=== PATIENT | male | born 1985 | race Caucasian/White ===

== ENCOUNTER 2019-01-08 16:55 | Inpatient (IN) ==
--- OUTSIDE RECORDS SUMMARY | 2019-01-08 16:58 | External Medical Summary | Continuity of Care Document ---
:1985 Author Name Sabiha Ny, Provider Address Unavailable Unavailable , Care Team Providers Name Role Phone Tiffany LANG M.D., Nicolas Pena Unavailable [email or web address] [email or web address] [email or web address] Shelby Goodrich PA-C Unavailable [email or web address] RICKEY ALLEN M.D., Kaleb Unavailable Unavailable Unavailable Unavailable Unavailable Problems Anxiety disorder (300.00) (F41.9) Cervicalgia (723.1) (M54.2) Lumbago (724.2) (M54.5) Chronic pain (338.29) (G89.29) Convulsions (780.39) (R56.9) Seizure disorder (345.90) (G40.909) T2 vertebral fracture (805.2) (S22.029A) Chin laceration (873.44) (S01.81XA) Fall (E888.9) (W19.XXXA) Chronic viral hepatitis C (070.54) (B18.2) Depression (311) (F32.9) Vision problems (V41.0) (H54.7) Heart murmur (785.2) (R01.1) Cough (786.2) (R05) Titus involving less than 10% of body surface (948.00) (T31. 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 Anant Allen III Start: 22-Sep-2013 Quantity: 30 Refills: 5 Meloxicam 15 MG Oral Tablet; Take 1 tablet daily Anant Allen III Start: 30-Apr-2014 Quantity: 30 Refills: 3 ZyPREXA 10 MG Oral Tablet; TAKE 1 TABLET TWICE DAILY. Refills: 0 Sertraline HCl - 25 MG Oral Tablet; Take 1 tablet daily 30 Tablet Bottle Refills: 0 Proventil HFA 108 (90 Base) MCG/ACT Inha lation Aerosol Solution; INHALE 2 PUFFS EVERY 4-6 HOURS NEEDED. EILEEN Wagner Start: 31-Mar-2016 Quantity: 18 Refills: 1 Procedures Procedures not documented Immunizations Td On: 24-Dec-1998 Hepatitis A On: 05-Jul-2008 Influenza On: 14-May-2011 Influenza Comments:denied 2013 Family History Unknown Family Member Family history of CABG Status: Active Comments: Family History Mother No pertinent family history (V49.89) (Z78.9) Status: Active Social History - Smoking Status Current every day smoker Plan of Treatment Planned Observations Planned Goals not documented Results No Known Results Results not documented Encounters Appointment; Case, MADALYN Velasquez 24-Jun-2017 15:00 Encounter Diagnosis: Problem not documented
[2019-01-08 17:40] LABS: Basophils # (auto) 0.02 K/uL (0-0.2); Basophils % (auto) 0.2 %; Eosinophils # (auto) 0.07 K/uL (0-0.5); Eosinophils % (auto) 0.8 %; Hematocrit (blood only) 41.8 % (42-52); Immature Granulocytes # (auto) 0.01 K/uL (0.00-0.02); Immature Granulocytes % (auto) 0.1 %; Lymphocytes % (auto) 32.4 %; Mean Corpuscular Hgb Conc 35.9 g/dL (32-36); Mean Corpuscular Volume 86.7 fL (80-100); Mean Platelet Volume 9.1 fL (7.4-10.4); Monocytes # (auto) 0.53 K/uL (0.11-0.59); Monocytes % (auto) 5.9 %; Neutrophils # (auto) 5.43 K/uL (1.4-6.5); Neutrophils % (auto) 60.6 %; Platelet Count 257 K/uL (130-400); RDW Coefficient of Variation 13.1 % (11.5-14.5); RDW Standard Deviation 42.1 fL (36.4-46.3); Red Blood Count 4.82 M/uL (4.7-6.1); White Blood Count 8.96 K/uL (4.8-10.8)
[2019-01-08] MEDS: NICOTINE 21 MG/24 HR TDSY TD SCH (17:46)
[2019-01-08 17:53] LABS: Appearance Urine Clear (Clear); Bilirubin Urine Negative (Negative); Blood Urine Negative (Negative); Color Urine Yellow; Glucose Urine UA Negative (Negative); Ketones Urine Negative (Negative); Leukocyte Esterase Urine Negative (Negative); Nitrite Urine Negative (Negative); Protein Urine Negative (Negative); Specific Gravity Urine 1.012 (1.000-1.030); Urobilinogen Urine Negative (Negative)
[2019-01-08 18:02] LABS: Acetaminophen < 2 ug/ml (10-30); Salicylate 1.9 mg/dl (2.8-20)
[2019-01-08 18:05] LABS: Albumin Level 3.8 gm/dl (3.4-5.0); BUN Creatinine Ratio 13.3 (10-20); Calcium 8.2 mg/dl (8.5-10.1); Est GFR (African American) 96.7; Est GFR (Non-African American) 83.4; Potassium 3.5 mmol/L (3.5-5.1)
[2019-01-08 18:13] LABS: Albumin Globulin Ratio 1.1 (0.9-2); Bilirubin,Total 0.3 mg/dl (0.2-1); Globulin 3.4 gm/dl (2.5-4.0); Total Protein 7.2 gm/dl (6.4-8.2)
[2019-01-08 18:18] LABS: Amphetamines+Metham, Urine Neg (Neg); Barbiturates, Urine Neg (Neg); Benzodiazepine, Urine Neg (Neg); Cocaine, Urine Neg (Neg); MDMA (Ecstacy), Urine Neg (Neg); Methadone, Urine Neg (Neg); Opiate, Urine Neg (Neg); Phencyclidine, Urine Neg (Neg)
[2019-01-08] MEDS: THIAMINE HCL 100 MG TAB PO SCH (18:48)
[2019-01-08] MEDS: MULTIVITAMIN TAB PO SCH (18:48)
[2019-01-08] MEDS: FOLIC ACID 400 MCG TAB PO SCH (18:48)
[2019-01-08] MEDS ORDERED: TRAZODONE HCL 50 MG TAB PO ONE (22:32)
[2019-01-08] MEDS ORDERED: lamoTRIgine 100 MG TAB PO ONE (22:45)
[2019-01-08] MEDS ORDERED: TOPIRAMATE 100 MG TAB PO ONE (22:45)
[2019-01-08] MEDS ORDERED: levETIRAcetam 500 MG TAB PO ONE (22:45)
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
[2019-01-09] MEDS ORDERED: ONDANSETRON INJ 2 MG/ML 2 ML VIAL IV PRN (00:35)
[2019-01-09] MEDS ORDERED: LORazepam 1 MG/2 ML VIAL IV PRN (00:35)
[2019-01-09] MEDS ORDERED: LORazepam 3 MG/6 ML VIAL IV PRN (00:35)
[2019-01-09] MEDS ORDERED: ATIVAN IV ALCOHOL WITHDRAWL IV SCH (00:35)
[2019-01-09] MEDS ORDERED: ACETAMINOPHEN 1000 MG/100 ML IV IV PRN (00:35)
[2019-01-09] MEDS ORDERED: ACETAMINOPHEN 325 MG TAB PO PRN (00:35)
[2019-01-09] MEDS ORDERED: LORazepam 2 MG/4 ML VIAL IV PRN (00:35)
--- NOTE | 2019-01-09 02:11 | History & Physical Report ---
Date of Service January 09, 2019 The patient was seen and admitted on January 08, 2019. Assessment & Plan (1) Suicidal ideation: Suicidal ideation/depression/seizure disorder- Admit to monitored bed. Continue lamotrigine 20 mg p.o. twice daily, Keppra 1500 mg p.o. twice daily, sertraline 50 mg p.o. every morning, Topamax 20 mg p.o. twice daily and trazodone 300 mg p.o. at bedtime. Consult psychiatry. Present on Admission?: Yes (2) Depression: As above. Present on Admission?: Yes (3) Epilepsia: As above. Present on Admission?: Yes (4) Alcohol withdrawal seizure: Place on alcohol withdrawal scale program Present on Admission?: Yes (5) Alcohol abuse: Placed on alcohol withdrawal program. Present on Admission?: Yes (6) Arthritis: Will resume meloxicam 15 mg p.o. daily when patient is eating regularly. Present on Admission?: Yes (7) Asthma: Continue Advair Diskus 1 inhalation twice daily and Ventolin HFA 2 puffs every 6 hours as needed. Present on Admission?: Yes History of Present Illness Chief Complaint: The patient presented to the emergency department for mental health evaluation due to suicidal ideation. During this evaluation by the ED, psychiatry asked that patient be admitted to medicine since patient had a history of seizure disorder as a child and may possibly go through alcohol withdrawal during this admission. Primary Care Provider: FELICE DOE The patient is a 33-year-old male with past medical history including seizure disorder, suicidal ideation, alcohol abuse, previous alcohol withdrawal symptoms, asthma, lumbar spine arthritis, right knee arthritis and depression who presented to the emergency department with suicidal ideation, and was then [facility] due to history as above and concerns for possible alcohol withdrawal. Patient does report generalized fatigue, and mild nausea. Allergies Allergy/AdvReac Type Severity Reaction Status Date / Time amoxicillin Allergy Unknown UNKNOWN Verified 01/08/19 18:50 clavulanic acid Allergy Unknown UNKNOWN Verified 01/08/19 18:50 Home Medications Home Medications Medication Instructions Recorded Confirmed Type levetiracetam [Keppra] 1,500 mg PO BID #0 tab 01/12/13 01/08/19 History sertraline 50 mg PO QAM #0 tab 01/12/13 01/08/19 History albuterol sulfate [Ventolin HFA] 2 puff INHALATION q4-6h PRN #0 05/15/15 01/08/19 History meloxicam 15 mg PO DAILY #0 05/19/15 01/08/19 History topiramate [Topamax] 200 mg PO BID #60 06/10/16 01/08/19 History lamotrigine [Lamictal] 200 mg PO BID 12/06/18 01/08/19 History fluticasone propion-salmeterol 1 puff INHALATION BID 01/08/19 01/08/19 History trazodone 300 mg PO HS 01/08/19 01/08/19 History Past Med/Surg History Medical History Epilepsia (Chronic) Social History Preferred Language: [place]er Communication Ability: Effective Publications Inspector Required: No Beliefs That Will Affect Care: None Current Living Situation: Homeless Feels Safe at Home: Yes Safety Concerns: Feels Safe At This Time Smoking Status: Current every day smoker Tobacco Type: cigarettes Cigarettes Per Day: 20 Hx Alcohol Use: Yes Alcohol type: beer Hx Substance Use: No Review of Systems Review of Systems: The patient denies chest pain, palpitations, shortness of breath, dyspnea on exertion, cough, lower extremity swelling, sore throat, fevers, chills, sweats, weight change, vomiting, diarrhea , constipation, abdominal pain, pelvic pain, blood in urine or stool, dysuria, urinary frequency or urgency, lightheadedness, dizziness, headache, memory loss, loss of consciousness, rash, abnormal bruising or bleeding, imbalance, focal or generalized weakness, numbness or tingling in arms or legs, generalized arthralgias or myalgias, back or neck pain, or night sweats. The review of systems is otherwise negative other than for that already noted above, and at least 10 systems have been reviewed. Physical Exam Physical Exam: The patient is awake, alert and oriented 3, well developed and well nourished, normocephalic and atraumatic, lying in bed and in no acute distress. HEENT--PERRL, EOMI, mucous membranes and oropharynx dry. Neck--supple. No JVD. No bruits. Thyroid normal, trachea midline, no adenopathy. Heart--normal S1 and S2. No murmurs, rubs or gallops. Lungs--clear bilaterally, no respiratory distress, no accessory muscle use. Abdomen--normal bowel sounds and soft. Nontender. Nondistended. Extremities--no cyanosis or clubbing. No edema. There are good distal pulses b/l. Dermatologic--normal skin turgor, normal color, no abnormal lymph nodes, no rash. Neurologic--cranial nerves II through XII grossly intact. Rheumatologic--normal range of motion. Psychiatric--depressed Results & Data Vital Signs (Past 12 Hours) Vital Signs Temp Pulse Pulse Resp BP BP Pulse Ox 01/09/19 00:33 98.1 F 62 16 120/75 99 01/09/19 00:20 82 18 116/75 98 01/08/19 22:48 84 18 114/62 97 01/08/19 20:30 82 18 119/71 97 01/08/19 17:04 98.6 F 109 H 20 139/72 95 Laboratory Results Laboratory Results WBC 8.96 K/uL (4.8-10.8) 01/08/19 17:25 RBC 4.82 M/uL (4.7-6.1) 01/08/19 17:25 Hgb 15.0 g/dL (14.0-18.0) 01/08/19 17:25 Hct 41.8 % (42-52) L 01/08/19 17:25 MCV 86.7 fL (80-100) 01/08/19 17:25 MCH 31.1 pg (25-34) 01/08/19 17:25 MCHC 35.9 g/dL (32-36) 01/08/19 17:25 RDW Std Deviation 42.1 fL (36.4-46.3) 01/08/19 17:25 RDW Coeff of Sweetie 13.1 % (11.5-14.5) 01/08/19 17:25 Plt Count 257 K/uL (130-400) 01/08/19 17:25 MPV 9.1 fL (7.4-10.4) 01/08/19 17:25 Immature Gran % (Auto) 0.1 % 01/08/19 17:25 Neut % (Auto) 60.6 % 01/08/19 17:25 Lymph % (Auto) 32.4 % 01/08/19 17:25 [place] % (Auto) 5.9 % 01/08/19 17:25 Eos % (Auto) 0.8 % 01/08/19 17:25 Baso % (Auto) 0.2 % 01/08/19 17:25 Immature Gran # (Auto) 0.01 K/uL (0.00-0.02) 01/08/19 17:25 Neut # (Auto) 5.43 K/uL (1.4-6.5) 01/08/19 17:25 Lymph # (Auto) 2.90 K/uL (1.2-3.4) 01/08/19 17:25 [place] # (Auto) 0.53 K/uL (0.11-0.59) 01/08/19 17:25 Eos # (Auto) 0.07 K/uL (0-0.5) 01/08/19 17:25 Baso # (Auto) 0.02 K/uL (0-0.2) 01/08/19 17:25 Sodium 145 mmol/L (136-145) 01/08/19 17:25 Potassium 3.5 mmol/L (3.5-5.1) 01/08/19 17:25 Chloride 113 mmol/L (98-107) H 01/08/19 17:25 Carbon Dioxide 21 mmol/L (21-32) 01/08/19 17:25 Anion Gap 11.0 (3-11) 01/08/19 17:25 BUN 15 mg/dl (7-18) 01/08/19 17:25 Creatinine 1.14 mg/dl (0.6-1.4) 01/08/19 17:25 Est Cr Clr Drug Dosing 93.0 ml/min 01/08/19 17:25 Est GFR ( Amer) 96.7 01/08/19 17:25 Est GFR (Non-Af Amer) 83.4 01/08/19 17:25 BUN/Creatinine Ratio 13.3 (10-20) 01/08/19 17:25 Glucose 81 mg/dl (70-99) 01/08/19 17:25 Calcium 8.2 mg/dl (8.5-10.1) L 01/08/19 17:25 Total Bilirubin 0.3 mg/dl (0.2-1) 01/08/19 17:25 AST 47 U/L (15-37) H 01/08/19 17:25 ALT 67 U/L (12-78) 01/08/19 17:25 Alkaline Phosphatase 138 U/L (45-117) H 01/08/19 17:25 Total Protein 7.2 gm/dl (6.4-8.2) 01/08/19 17:25 Albumin 3.8 gm/dl (3.4-5.0) 01/08/19 17:25 Globulin 3.4 gm/dl (2.5-4.0) 01/08/19 17:25 Albumin/Globulin Ratio 1.1 (0.9-2) 01/08/19 17:25 TSH 1.030 uIu/ml (0.300-4.500) 01/08/19 17:25 Specimen Hemolysis 01/08/19 17:25 Urine Color Yellow 01/08/19 17:40 Urine Appearance Clear (Clear) 01/08/19 17:40 Urine pH 5.0 (4.5-7.5) 01/08/19 17:40 Ur Specific Worth 1.012 (1.000-1.030) 01/08/19 17:40 Urine Protein Negative (Negative) 01/08/19 17:40 Urine Glucose (UA) Negative (Negative) 01/08/19 17:40 Urine Ketones Negative (Negative) 01/08/19 17:40 Urine Blood Negative (Negative) 01/08/19 17:40 Urine Nitrite Negative (Negative) 01/08/19 17:40 Urine Bilirubin Negative (Negative) 01/08/19 17:40 Urine Urobilinogen Negative (Negative) 01/08/19 17:40 Ur Leukocyte Esterase Negative (Negative) 01/08/19 17:40 Salicylates 1.9 mg/dl (2.8-20) L 01/08/19 17:25 Urine Opiates Screen Neg (Neg) 01/08/19 17:40 Ur Methadone, Qual Neg (Neg) 01/08/19 17:40 Acetaminophen < 2 ug/ml (10-30) L 01/08/19 17:25 Urine Barbiturates Neg (Neg) 01/08/19 17:40 Ur Phencyclidine (PCP) Neg (Neg) 01/08/19 17:40 U Amphetamin/Meth Scrn Neg (Neg) 01/08/19 17:40 MDMA (Ecstasy) Screen Neg (Neg) 01/08/19 17:40 U Benzodiazepines Scrn Neg (Neg) 01/08/19 17:40 Ur Cocaine Metabolite Neg (Neg) 01/08/19 17:40 U Marijuana (THC) Screen Neg (Neg) 01/08/19 17:40 Ethyl Alcohol mg/dL 141.0 mg/dl (0-3) H 01/08/19 17:25 Code Status & VTE Plan Code Status Full code VTE Prophylaxis Plan VTE Prophylaxis will be ordered: Yes PG Care Time/CCT Total # of Minutes Spent Total Time Spent with Patient: Total time spent is greater than 50% in coordination of care (as documented) at patient's floor/unit and/or counseling patient: (1) Alcohol withdrawal seizure Complication of substance-induced condition: with unspecified complication Qualified Code(s): F10.239 - Alcohol dependence with withdrawal, unspecified; R56.9 - Unspecified convulsions
[2019-01-09 07:04] LABS: Basophils # (auto) 0.01 K/uL (0-0.2); Basophils % (auto) 0.2 %; Eosinophils # (auto) 0.13 K/uL (0-0.5); Eosinophils % (auto) 2.1 %; Hematocrit (blood only) 40.7 % (42-52); Hemoglobin 14.3 g/dL (14.0-18.0); Immature Granulocytes # (auto) 0.02 K/uL (0.00-0.02); Immature Granulocytes % (auto) 0.3 %; Mean Corpuscular Hgb Conc 35.1 g/dL (32-36); Mean Corpuscular Volume 87.3 fL (80-100); Mean Platelet Volume 9.2 fL (7.4-10.4); Monocytes # (auto) 0.48 K/uL (0.11-0.59); Monocytes % (auto) 7.7 %; Neutrophils # (auto) 3.27 K/uL (1.4-6.5); Neutrophils % (auto) 52.7 %; Platelet Count 188 K/uL (130-400); RDW Coefficient of Variation 13.5 % (11.5-14.5); RDW Standard Deviation 43.1 fL (36.4-46.3); Red Blood Count 4.66 M/uL (4.7-6.1); White Blood Count 6.21 K/uL (4.8-10.8)
[2019-01-09 07:25] LABS: Partial Thromboplastin Ratio 0.9; Partial Thromboplastin Time 25.3 Seconds (21.0-31.0); Prothrombin Time 10.6 Seconds (9.0-12.0)
[2019-01-09 07:32] LABS: Albumin Level 3.2 gm/dl (3.4-5.0); BUN Creatinine Ratio 22.2 (10-20); Calcium 8.6 mg/dl (8.5-10.1); Creatinine Clr Calc Pharmacy 104.1 ml/min; Est GFR (Non-African American) 96.6; Potassium 3.8 mmol/L (3.5-5.1)
[2019-01-09 07:35] LABS: Albumin Globulin Ratio 1.1 (0.9-2); Bilirubin,Total 0.5 mg/dl (0.2-1); Globulin 2.9 gm/dl (2.5-4.0); Total Protein 6.1 gm/dl (6.4-8.2)
[2019-01-09] MEDS: levETIRAcetam 500 MG TAB PO SCH ×2 (08:37→20:48)
[2019-01-09] MEDS: lamoTRIgine 100 MG TAB PO SCH ×2 (08:38→20:48)
[2019-01-09] MEDS: MELOXICAM 7.5 MG TAB PO SCH (08:39)
[2019-01-09] MEDS: TOPIRAMATE 100 MG TAB PO SCH ×2 (08:39→20:48)
[2019-01-09] MEDS: SERTRALINE HCL 50 MG TABLET PO SCH (08:40)
[2019-01-09] MEDS: NICOTINE 21 MG/24 HR TDSY TD SCH (08:41)
[2019-01-09] MEDS: THIAMINE HCL 100 MG TAB PO SCH (11:35)
[2019-01-09] MEDS: FOLIC ACID 400 MCG TAB PO SCH (11:35)
[2019-01-09] MEDS: MULTIVITAMIN TAB PO SCH (11:35)
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
--- NOTE | 2019-01-09 16:12 | Family Medicine Progress Note ---
Date of Service January 09, 2019 Assessment & Plan (1) Suicidal ideation: - attributes recently becoming homeless as stressor causing suicidal ideations - currently no suicidal plans - consult psychiatry placed today - 1:1 precautions/sitter (2) Depression: - with setting of recent stressor becoming homeless. - continue with Zoloft 50mg qAM - Continue with Trazodone 300mg qHS (3) Alcohol abuse: - [facility] protocol for alcohol withdrawal which patient is high risk - Monitor vitals for tachycardia from withdrawal - Motivational interviewing/counseling on EtOH abuse provided here (4) Bipolar disorder: - uncertain of use of anti-seizure medications vs. mood stabilizers. - coverage provided Topamax 200mg BID (5) Seizure disorder: - Notes frequent seizures with alcohol use, but is vague historian on details - No signs of injury, tongue injury, head injury on exam, only very small mild abrasions he notes from fall on dorsal upper extremities and hands. - Continue with home doses of Lamictal 200mg PO BID, Keppra 1,500mg PO BID, Topamax 200mg BID (6) Tobacco abuse: - Motivational interviewing/counseling on tobacco abuse provided here (7) Epilepsia: seizure disorder as noted above (8) Asthma: - continue with home meds Ventolin rescue inhaler 2 puff PRN; continue with Fluticasone propion-salmeterol 1puff BID. Supervising Physician Co-Signing Physician Notes Attending attestation Pt seen and examined in concert with Dr. Woodruff. In agreement with the documented findings as noted in the resident documentation with any exceptions or additions as noted here. Pt sleeping in bed, arousable to voice. Reports general feeling of fatigue and comports a desire to find a home, though not to stop drinking. On examination, S1/S2 nl RRR no MCG. CTAB. Abd NT/ND BS+ve Suicidal ideation in the setting of major depression with concomittent alcohol abuse and recent homelessness - case management and psychiatry involvement appreciated. Continue withdrawal ppx w/ ativan for agitation Seizure disorder - continue lamotrigine, keppra, sertraline, topiramate, trazodone - last seizure during drinking binge previously without overt injury Else see resident documentation as noted. Ankita Dallas notes last drink was yesterday Wednesday around 3pm. He denies any hallucinations both visual and audio. He notes feeling shaky but states he has never had a previous episode of alcohol withdrawal. He notes that losing his housing and becoming homeless was a major stressor for him. He denies any suicidal plans. Physical Exam Constitutional: WD/WN, vitals as above cooperative Eyes: PERRL, conjunctivae normal, anicteric sclerae ENMT: external ear and nose normal, oropharynx normal Neck: trachea midline, no thyromegaly Respiratory: normal respiratory effort, lungs clear to auscultation Cardiovascular: RRR, no murmur, no edema Gastrointestinal (Abdomen): normal bowel sounds, soft, nontender, no hepatosplenomegaly Musculoskeletal: Head/Neck/Chest: + head abnormal to inspection, normocephalic and head atraumatic Extremities: extremities normal to inspection and strength 5/5 throughout Skin: no rashes, warm and dry mild small abrasions on upper dorsal forearm extremities bilaterally without any signs of infection Neurologic: CN's II-XI intact bilaterally, moves all extremities and awake Motor/Sensory: + tremor (upper extremities when hands outstretched) Cranial Nerves: PERRL, normal accommodation, EOM intact bilaterally, normal facial strength, tongue midline, normal hearing and able to rotate head bilaterally Psychiatric: Orientation: alert and oriented x 3 Eye Contact: + fair eye contact Speech: normal rate/rhythm/volume of speech Affect: + flat affect Mood: + depressed mood Suicidal Thoughts: denies suicidal plan Hernandez llucinations: no auditory hallucinations and no visual hallucinations Insight: + limited insight Results & Data Vital Signs (Past 12 Hours) Vital Signs Temp Pulse Pulse Resp BP Pulse Ox 01/09/19 15:39 37 C 80 18 107/65 98 01/09/19 10:50 36.5 C 78 18 115/70 98 01/09/19 08:00 71 01/09/19 06:47 36.8 C 90 20 107/65 99 PG Care Time/CCT Total # of Minutes Spent Total Time Spent with Patient: Total time spent is greater than 50% in coordination of care (as documented) at patient's floor/unit and/or counseling patient: Resident Activity Tracking Resident Involvement: Resident Care Provided Care Provided: Adult Hospital Medicine
[2019-01-09] MEDS: FLUTICASONE PROPIONATE INH SCH (18:33)
[2019-01-09] MEDS: SALINE LOCK FLUSH IV SCH (18:33)
[2019-01-09] MEDS: SALMETEROL INH SCH (18:33)
[2019-01-09] MEDS: ALBUTEROL HFA 8 GM INHALER INH PRN (19:07)
[2019-01-09] MEDS: TRAZODONE HCL 100 MG TAB PO SCH (20:48)
[2019-01-10] MEDS: lamoTRIgine 100 MG TAB PO SCH ×2 (08:29→21:48)
[2019-01-10] MEDS: SERTRALINE HCL 50 MG TABLET PO SCH (08:30)
[2019-01-10] MEDS: FOLIC ACID 400 MCG TAB PO SCH (08:30)
[2019-01-10] MEDS: MULTIVITAMIN TAB PO SCH (08:30)
[2019-01-10] MEDS: MELOXICAM 7.5 MG TAB PO SCH (08:30)
[2019-01-10] MEDS: THIAMINE HCL 100 MG TAB PO SCH (08:30)
[2019-01-10] MEDS: TOPIRAMATE 100 MG TAB PO SCH ×2 (08:30→21:49)
[2019-01-10] MEDS: FLUTICASONE PROPIONATE INH SCH ×2 (08:31→21:46)
[2019-01-10] MEDS: levETIRAcetam 500 MG TAB PO SCH ×2 (08:31→21:48)
[2019-01-10] MEDS: NICOTINE 21 MG/24 HR TDSY TD SCH (08:31)
[2019-01-10] MEDS: SALMETEROL INH SCH ×2 (08:31→21:46)
--- NOTE | 2019-01-10 09:28 | Psychiatric Progress Note ---
Date of Service January 10, 2019 Impression / Recommendations Impression Psychiatry consulted to assess 33 yo M with pMHx including seizure disorder, asthma, hepatitis C, L-spine/R knee arthritis, alcohol abuse, tobacco abuse, as well as psychiatric hx of depression, bipolar, h/o suicide attempt. Patient presented to [facility] emergency department on 01/08/19 with suicidal ideation wanting help as he was feeling he was losing control of his life. He was admitted to [facility] under the medical service for possible alcohol withdrawal symptoms. Admission diagnostics reviewed, no signif abnormalities noted on CBC, CMP, coag, TSH, UA, or EKG. Alcohol level on admission was 141. Patient certainly has multiple psychiatric risk factors (history of abuse, homelessness, unemployed, strained relationships with family), but upon further assessment of patient, there has been significant improvement/resolution of his symptoms of depression, including the resolution of SI, and some ongoing anxiety mainly related to his current financial and living situation. We will seek to obtain records from patient's PCP as well as previous in- and out-patient psychiatric care providers in order to further determine appropriateness for inpatient psychiatric care and to manage terminal worker care, as well as seek to obtain collateral history from patient's family members. At present however, patient does not meet inpatient admission criteria. Patient history and management discussed with psychiatrist, Dr. Bryant, who is involved in the medical decision-making of this patient's care. (1) Suicidal ideation: 01/09: -Further assessment will be required once somnolence improves. -Agree with suicide precautions at present: safety checks q15min, one-to-one observation, safe meal tray. -Patient is a voluntary medical floor admission at present, however, if patient continues to have SI, would need to consider involuntary admission. -Will need to obtain records of previous psychiatric care in outpatient and inpatient settings. -Management of depression and triggers as outlined below. -Family meeting may be helpful in the future. 01/10: -States resolution of SI, and identifies homelessness as main contributor. -Primary team may consider discontinuing SI precautions if patients remains free of SI thoughts. -Petition for 302 on file from ED psych CM if patient continues to have SI, but otherwise voluntary admission at present. -Obtain records of previous psychiatric care in outpatient and inpatient settings. -Management of depression and triggers as outlined, would benefit with discussion re: services and options with CM. -Family meeting may be helpful in the future. (2) Depression: 01/09: -Further assessment will be required once somnolence improves. -Continue sertraline and trazodone. Though these can reduce seizure threshold, will avoid stopping psych meds if he has been on these usp. -Continue Keppra and Lamictal at present, although uncertain if these medications are primarily being used to manage seizure disorder or as mood stabilizers - will seek to clarify this through outside records. -Will need to obtain outside records of previous medication management. -Aftercare coordination with psychiatrist will likely be beneficial. 01/10: -No significant complaints of depressive symptoms. -Continue sertraline and trazodone. -Obtain records from outside providers re: previous med management. -Patient interested in establishing with mental healthcare provider in [facility] "depending on where he ends up," will work with patient on aftercare coordination. (3) Alcohol abuse: 01/09: -Given high risk of alcohol withdrawal symptoms/seizure, would recommend continued management on medical floor -Continue AWSS protocol active withdrawal protocol. -Take seizure precautions, monitor for seizures. -Would offer patient alcohol rehab. 01/10: -Patient not describing significant ongoing symptoms of withdrawal/DT/seizures since admission. -Defer to primary team to continue AWSS protocol as appropriate. -Encourage motivational interviewing/counseling on EtOH abuse and offer patient alcohol rehab. (4) Bipolar disorder: 01/09: -Further assessment will be required once somnolence improves. -Continue Keppra and Lamictal at present -Will need to obtain outside records of medication management. 01/10: -Patient believes he was diagnosed but never medically managed for bipolar. -Obtain outside records to elicit history of bipolar (symptoms, medication trials, management/admissions). -Continue Lamictal and Keppra at present. (5) Seizure disorder: 01/09: -Will need to obtain outpatient records. 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 -Continue Lamictal, Keppra, and Topamax at present. -Monitor for seizures, take seizure precautions. -Treat alcohol/breakthrough seizures per AWSS protocol. 01/10: -H/o seizures 2/2 to benign brain tumor as well as alcohol withdrawal. -Patient claims compliance with medication, as well as regular follow up with neurologist. -Continue with home doses of Lamictal 200mg PO BID, Keppra 1,500mg PO BID, Topamax 200mg BID. -Patient amenable to record release from neurologist if necessary. (6) Tobacco abuse: 01/09: -Encourage motivational interviewing/counseling on tobacco cessation. -Agree with nicotine patch. Inventory Assets Strengths: ability to seek help, resolution of symptoms with removal of acute stressors Needs: outpatient care, alcohol rehab, employment, social support, housing Risk Factors Assessment Male: Yes : Yes Health Problems: Yes Mental Health Diagnoses: Yes Substance Use Disorders: Yes Previous Attempt: Yes Previous Attempt; Planned: Yes Previous Psychiatric Hospitalization: Yes Hopelessness: Yes Smoker: Yes Protective Factors Assessment : No Responsible for Young Children: No Employed: No (Recently unemployed) Stable Relationships: No Supportive Family: No Interval History Chief Complaint "Feeling better, just stressed". Review of Systems Notes Patient otherwise denies fevers/chills/night sweats, headaches, dizziness/lightheadedness, URI sx, chest discomfort, palpitations, dyspnea, abdominal pain, N/V, urinary sx, or any issues with stooling. He denies any ambulatory dysfunction or weakness/numbness/tingling of extremities. Pertinent positives are outlined in the HPI. Subjective Subjective Patient was seen & assessed and interval progress reviewed with Treatment Team. Note patient has been more awake, and that attempts to obtain outside records will be helpful in determining further management. Discussion with the patient reveals that since admission, patient has been feeling better. He states improvement in his mood and anxiety, resolution of his auditory hallucinations and he is no longer having SI, and never had HI. He states that his symptoms had only really worsened in the few days since he had left his mom/brother's house to avoid them from being evicted (they live in a rent-controlled apartment, and recently received notice from [facility] of eviction if the unauthorized tenant [the patient] did not leave the property). Since becoming homeless, patient's stress levels escalated. He resigned from his job at [employer] (position held from December 07 to January 06, 2019) because he did not have means to attend in groomed manner given he had no shower or clean clothes. He has been sleeping in [facility] in [place], but sleep has been fragmented with fear of being taken into usp by police if he was found, as well as ongoing concern of what he can do to avoid being homeless, rather than racing/scattered thoughts. He states "I've probably spent 10 years of my life in total in detention, I don't want any more time." He did state that he received payment from [employer] recently, and his mom had put money on a card for him to spend on food, but he spent this mostly on cheap tobacco and alcohol. He denies the use of other recreational drugs. He admits that his family and a friend encouraged him to seek help at the hospital where he could at least "have a roof over his head, food, and a shower." Patient currently denies feeling sad, he is hopeful of the future, he does feel guilty about almost getting his mom and brother evicted. He slept well overnight, and is tolerating food without nausea or vomiting. He denies feeling like someone is out to hurt him, that there are messages being sent to him, any delusions of grandiosity, h/o days gone without requiring any sleep, or recent panic attacks. He has some ongoing anxiety about what will happen post discharge, especially with housing given his financial status. He states he was diagnosed with "manic depression" in his adolescent years but states he was never prescribed any medication, and has not seen a therapist in "years." Aside from his admission to the [facility] in 2000, he denies any psychiatric admissions in his past. He denies awareness of any family history of mental health issues. Patient notes his mom and brother visited last night, and were extremely positive. He states he has a few friends who he can rely on for support. He has no children, and his last relationship with a male, Pepito, ended 2 years ago after getting engaged and almost getting - this topic agitated the patient, and we did not go into this further. He is interested in establishing outpatient care for his mental health issues in [facility], as he wishes to remain close to his mom and brother. He also follows with a neurologist, Dr. Valenzuela for his seizure meds, bridge ironworker, Dr. Gruber for his liver and hepatitis (he denies treatment of this in the past), and his PCP, Dr. Valencia. He is agreeable to sign record releases to obtain records from his providers. He states that from an alcohol withdrawal standpoint, he is still feeling a little shaky, but notes that his hands are slightly tremulous at baseline, secondary to his epilepsy. He denies seizures since admission. He denies CP, palpitations, diaphoresis, or other active symptoms of withdrawal currently. He states the only time he attended alcohol and drug rehab was when it was mandated as part of his incarceration. Physical Exam Psychiatric Well developed, well nourished male, sitting up in bed without evidence of acute distress. Orientation: alert, oriented x 3 and cooperative Apperance: appropriately dressed, appropriately groomed and appeared stated age Eye Contact: good eye contact Motor Behavior: no abnormal motor movements; no psychomotor agitation Slow speech but otherwise normal rhythm and volume Affect: + flat affect; no depressed affect and no angry affect Mood: + anxious mood Thought Process: goal directed thought process, linear/logical thought process and clear/coherent thought process Thought Content: reality based without delusions Suicidal Thoughts: denies suicidal thoughts Homicidal Thoughts: denies homicidal thoughts Hallucinations: no auditory hallucinations, no visual hallucinations and no tactile hallucinations Cognition: recent memory grossly intact, remote memory grossly intact, attention grossly intact and language grossly intact Estimated Intelligence: consistent with education level Insight: + fair insight Judgement: + fair judgement Vital Signs (Past 24 Hours) Last Vital Signs Temp 36.7 C 01/10/19 06:10 Pulse 62 01/10/19 07:15 Resp 20 01/10/19 06:10 BP 115/62 01/10/19 06:10 Pulse Ox 98 01/10/19 06:10 Results & Data Laboratory Results Laboratory Results - last 24 hr 01/09/19 19:30 Nasal Screen MRSA (PCR) Negative Current Inpatient Medications Current Inpatient Medications: Current Inpatient Medications Acetaminophen (Ofirmev) 1,000 mg IV Q8H PRN PRN Reason: Pain or Fever Stop: 02/08/19 00:34 Acetaminophen (Tylenol) 650 mg PO Q4H PRN PRN Reason: Pain or Fever Stop: 02/08/19 00:34 Albuterol (Ventolin Hfa) 2 puffs INH Q4H PRN PRN Reason: Shortness Of Breath Or Wheezin Stop: 02/08/19 00:34 Last Admin: 01/09/19 19:07 Dose: 2 puffs Documented by: Folic Acid (Folvite) 400 mcg PO QAM [facility] Stop: 02/07/19 17:29 Last Admin: 01/10/19 08:30 Dose: 400 mcg Documented by: Lorazepam (Ativan) 1 mg in 2 mls @ 2 mls/min IV UD PRN; Protocol PRN Reason: EtOH Withdrawl AWSS Score 6,7 Stop: 02/08/19 00:34 Last Admin: 01/09/19 08:59 Dose: 2 mls/min Documented by: Lorazepam (Ativan) 3 mg in 6 mls @ 4 mls/min IV ONCE PRN; Protocol PRN Reason: EtOH Withdrawl AWSS Score >=10 Stop: 02/08/19 00:34 Lorazepam (Ativan) 2 mg in 4 mls @ 4 mls/min IV UD PRN; Protocol PRN Reason: EtOH Withdrawl AWSS Score 8,9 Stop: 02/08/19 00:34 Lamotrigine (Lamictal) 200 mg PO BID [facility] Stop: 02/08/19 08:59 Last Admin: 01/10/19 08:29 Dose: 200 mg Documented by: Levetiracetam (Keppra) 1,500 mg PO BID [facility] Stop: 02/08/19 08:59 Last Admin: 01/10/19 08:31 Dose: 1,500 mg Documented by: Meloxicam (Mobic) 15 mg PO DAILY [facility] Stop: 02/08/19 08:59 Last Admin: 01/10/19 08:30 Dose: 15 mg Documented by: Miscellaneous (Remove Nicoderm Patch) 1 ea N/A HS [facility] Stop: 02/07/19 20:59 Last Admin: 01/09/19 21:50 Dose: 1 ea Documented by: Multivitamins (Multivitamin Tab) 1 tab PO QAM [facility] Stop: 02/07/19 17:29 Last Admin: 01/10/19 08:30 Dose: 1 tab Documented by: Nicotine (Nicoderm Cq) 21 mg TD QAM [facility] Stop: 02/07/19 17:44 Last Admin: 01/10/19 08:31 Dose: 21 mg Documented by: ~Fluticasone Prop& Salmeterol 55mcg/14mcg Inh~Non- Formulary Patient's Own Med 1 ea INH BID [facility]; Protocol Stop: 02/08/19 20:59 Last Admin: 01/10/19 08:31 Dose: 1 puffs Documented by: Ondansetron HCl (Zofran) 4 mg IV Q6H PRN PRN Reason: NAUSEA/VOMITING Stop: 02/08/19 00:34 Sertraline HCl (Zoloft) 50 mg PO QAM [facility] Stop: 02/08/19 08:59 Last Admin: 01/10/19 08:30 Dose: 50 mg Documented by: Sodium Chloride (Saline Lock Flush) 1 ea IV DAILY@1800 [facility] Stop: 02/08/19 17:59 Last Admin: 01/09/19 18:33 Dose: 1 ea Documented by: Thiamine HCl (Vitamin B-1) 100 mg PO QAM [facility] Stop: 02/07/19 17:29 Last Admin: 01/10/19 08:30 Dose: 100 mg Documented by: Topiramate (Topamax) 200 mg PO BID [facility] Stop: 02/08/19 08:59 Last Admin: 01/10/19 08:30 Dose: 200 mg Documented by: Trazodone HCl (Desyrel) 300 mg PO HS [facility] Stop: 02/08/19 20:59 Last Admin: 01/09/19 20:48 Dose: 300 mg Documented by: Post Discharge Appointments Primary Care Physician Name Of Family Doctor: Alexander Valencia Resident Activity Tracking Resident Involvement: Resident Care Provided Care Provided: Adult Hospital Medicine
[2019-01-10] MEDS: ALBUTEROL HFA 8 GM INHALER INH PRN (15:53)
--- NOTE | 2019-01-10 16:15 | Family Medicine Progress Note ---
Date of Service January 10, 2019 Assessment & Plan (1) Alcohol abuse: - [facility] protocol for alcohol withdrawal which patient is high risk but appears to not have needed as much ativan/benzos - Monitor vitals for tachycardia from withdrawal - Motivational interviewing/counseling on EtOH abuse provided here (2) Suicidal ideation: - attributes recently becoming homeless as stressor causing suicidal ideations - currently no suicidal plans and mood has improved - consulted psychiatry for discharge disposition - 1:1 precautions/sitter (3) Depression: - with setting of recent stressor becoming homeless. - continue with Zoloft 50mg qAM - Continue with Trazodone 300mg qHS - notes improved mood today (4) Homeless: - discussed with case management about providing resources for housing as patient is homeless - aiming for patient to have a place/plan for place to stay on discharge rather than being discharged to street. (5) Seizure disorder: - Notes frequent seizures with alcohol use, but is vague historian on details - No signs of injury, tongue injury, head injury on exam, only very small mild abrasions he notes from fall on dorsal upper extremities and hands. - Continue with home doses of Lamictal 200mg PO BID, Keppra 1,500mg PO BID, Topamax 200mg BID (6) Bipolar disorder: - uncertain of use of anti-seizure medications vs. mood stabilizers. - coverage provided Topamax 200mg BID - patient reports diagnosis but unsure of actual treatment (7) Tobacco abuse: - Motivational interviewing/counseling on tobacco abuse provided here (8) Asthma: - continue with home meds Ventolin rescue inhaler 2 puff PRN; continue with Fluticasone-salmeterol 1puff BID. (9) Epilepsia: seizure disorder as noted above Supervising Physician Co-Signing Physician Notes Attending attestation Pt seen and examined in concert with Dr. Woodruff. In agreement with the documented findings as noted in the resident documentation with any exceptions or additions as noted here. Resolution of SI/HI, developing plan for housing following discharge. Maternal information re: ?brain tumor - will check old records. Else see resident documentation as noted. Subjective [place] states that his mom and brother came to visit him and that his mood is improved today. He denies visual/auditory hallucinations. He notes still mild tremor. No chest pain, no shortness of breath, no diarrhea, no vomiting, no nausea. He looks forward to being able to take a shower today. Physical Exam Constitutional: WD/WN, vitals as above cooperative Eyes: PERRL, conjunctivae normal, anicteric sclerae ENMT: external ear and nose normal, oropharynx normal Neck: trachea midline, no thyromegaly Respiratory: normal respiratory effort, lungs clear to auscultation Cardiovascular: RRR, no murmur, no edema Gastrointestinal (Abdomen): normal bowel sounds, soft, nontender, no hepatosplenomegaly Musculoskeletal: Head/Neck/Chest: normocephalic and head atraumatic Extremities: extremities normal to inspection and strength 5/5 throughout Skin: no rashes, warm and dry Neurologic: CN's II-XI intact bilaterally, moves all extremities and awake Motor/Sensory: + tremor (upper extremities when hands outstretched) Cranial Nerves: PERRL, normal accommodation, EOM intact bilaterally, normal facial strength, tongue midline, normal hearing and able to rotate head bilaterally Psychiatric: Orientation: alert and oriented x 3 Eye Contact: + fair eye contact Speech: normal rate/rhythm/volume of speech Affect: + flat affect Mood: + depressed mood Suicidal Thoughts: denies suicidal plan Hallucinations: no auditory hallucinations and no visual hallucinations Insight: + limited insight mood does appear approved today Results & Data Vital Signs (Past 12 Hours) Vital Signs Temp Pulse Pulse Resp BP Pulse Ox 01/10/19 15:36 36.9 C 76 18 109/74 99 01/10/19 11:31 36.8 C 76 20 119/74 99 01/10/19 07:15 62 01/10/19 06:10 36.7 C 93 H 20 115/62 98 Laboratory Results Laboratory Results - last 24 hr 01/09/19 19:30 Nasal Screen MRSA (PCR) Negative Medications Administered Albuterol (Ventolin Hfa) 2 puffs INH Q4H PRN PRN Reason: Shortness Of Breath Or Wheezin Stop: 02/08/19 00:34 Last Admin: 01/10/19 15:53 Dose: 2 puffs Documented by: [id number] Admin: 01/09/19 19:07 Dose: 2 puffs Documented by: [id number] Folic [facility] ([facility]vite) [facility] Stop: 02/07/19 17:29 Last Admin: 01/10/19 08:30 Dose: 400 mcg Documented by: [id number] Admin: 01/09/19 11:35 Dose: 400 mcg Documented by: [id number] Admin: 01/08/19 18:48 Dose: 400 mcg Documented by: [id number] Lorazepam (Ativan) 1 mg in 2 mls @ 2 mls/min IV UD PRN; Protocol PRN Reason: EtOH Withdrawl AWSS Score 6,7 Stop: 02/08/19 00:34 Last Admin: 01/09/19 08:59 Dose: 2 mls/min Documented by: [id number] Lamotrigine (Lamictal) 200 mg PO BID [facility] Stop: 02/08/19 08:59 Last Admin: 01/10/19 08:29 Dose: 200 mg Documented by: [id number] Admin: 01/09/19 20:48 Dose: 200 mg Documented by: [id number] Admin: 01/09/19 08:38 Dose: 200 mg Documented by: [id number] Levetiracetam (Keppra) 1,500 mg PO BID [facility] Stop: 02/08/19 08:59 Last Admin: 01/10/19 08:31 Dose: 1,500 mg Documented by: [id number] Admin: 01/09/19 20:48 Dose: 1,500 mg Documented by: [id number] Admin: 01/09/19 08:37 Dose: 1,500 mg Documented by: [id number] Meloxicam (Mobic) 15 mg PO DAILY [facility] Stop: 02/08/19 08:59 Last Admin: 01/10/19 08:30 Dose: 15 mg Documented by: [id number] Admin: 01/09/19 08:39 Dose: 15 mg Documented by: [id number] Miscellaneous (Remove Nicoderm Patch) 1 ea N/A HS [facility] Stop: 02/07/19 20:59 Last Admin: 01/09/19 21:50 Dose: 1 ea Documented by: [id number] Admin: 01/09/19 00:53 Dose: Not Given Documented by: [id number] Multivitamins (Multivitamin Tab) 1 tab PO QAM [facility] Stop: 02/07/19 17:29 Last Admin: 01/10/19 08:30 Dose: 1 tab Documented by: [id number] Admin: 01/09/19 11:35 Dose: 1 tab Documented by: [id number] Admin: 01/08/19 18:48 Dose: 1 tab Documented by: [id number] Nicotine (Nicoderm Cq) 21 mg TD [facility] Stop: 02/07/19 17:44 Last Admin: 01/10/19 08:31 Dose: 21 mg Documented by: [id number] Admin: 01/09/19 08:41 Dose: 21 mg Documented by: [id number] Admin: 01/08/19 17:46 Dose: 21 mg Documented by: [id number] ~Fluticasone Prop& Salmeterol 55mcg/14mcg Inh~Non- Formulary Patient's Own Med 1 ea INH BID [facility]; Protocol Stop: 02/08/19 20:59 Last Admin: 01/10/19 08:31 Dose: 1 puffs Documented by: [id number] Admin: 01/09/19 18:33 Dose: 1 puffs Documented by: [id number] Sertraline HCl (Zoloft) 50 mg PO [facility] Stop: 02/08/19 08:59 Last Admin: 01/10/19 08:30 Dose: 50 mg Documented by: [id number] Admin: 01/09/19 08:40 Dose: 50 mg Documented by: [id number] Sodium Chloride (Saline Lock Flush) 1 ea IV DAILY@1800 [facility] Stop: 02/08/19 17:59 Last Admin: 01/09/19 18:33 Dose: 1 ea Documented by: [id number] Thiamine HCl (Vitamin B-1) 100 mg PO [facility] Stop: 02/07/19 17:29 Last Admin: 01/10/19 08:30 Dose: 100 mg Documented by: [id number] Admin: 01/09/19 11:35 Dose: 100 mg Documented by: [id number] Admin: 01/08/19 18:48 Dose: 100 mg Documented by: [id number] Topiramate (Topamax) 200 mg PO BID [facility] Stop: 02/08/19 08:59 Last Admin: 01/10/19 08:30 Dose: 200 mg Documented by: [id number] Admin: 01/09/19 20:48 Dose: 200 mg Documented by: [id number] Admin: 01/09/19 08:39 Dose: 200 mg Documented by: [id number] Trazodone HCl (Desyrel) 300 mg PO [facility] Stop: 02/08/19 20:59 Last Admin: 01/09/19 20:48 Dose: 300 mg Documented by: [id number] PG Care Time/CCT Total # of Minutes Spent Total Time Spent with Patient: Total time spent is greater than 50% in coordination of care (as documented) at patient's floor/unit and/or counseling patient: Resident Activity Tracking Resident Involvement: Resident Care Provided Care Provided: Adult Hospital Medicine
[2019-01-10] MEDS: SALINE LOCK FLUSH IV SCH (19:10)
[2019-01-10] MEDS: TRAZODONE HCL 100 MG TAB PO SCH (21:48)
[2019-01-11] MEDS: levETIRAcetam 500 MG TAB PO SCH (09:09)
[2019-01-11] MEDS: lamoTRIgine 100 MG TAB PO SCH (09:09)
[2019-01-11] MEDS: THIAMINE HCL 100 MG TAB PO SCH (09:10)
[2019-01-11] MEDS: MULTIVITAMIN TAB PO SCH (09:10)
[2019-01-11] MEDS: TOPIRAMATE 100 MG TAB PO SCH (09:11)
[2019-01-11] MEDS: SERTRALINE HCL 50 MG TABLET PO SCH (09:11)
[2019-01-11] MEDS: MELOXICAM 7.5 MG TAB PO SCH (09:11)
[2019-01-11] MEDS: SALMETEROL INH SCH (09:12)
[2019-01-11] MEDS: NICOTINE 21 MG/24 HR TDSY TD SCH (09:12)
[2019-01-11] MEDS: FLUTICASONE PROPIONATE INH SCH (09:12)
[2019-01-11] MEDS: FOLIC ACID 400 MCG TAB PO SCH (09:13)
--- NOTE | 2019-01-11 10:20 | Psychiatric Progress Note ---
Date of Service January 11, 2019 Impression / Recommendations Impression Psychiatry consulted to assess 33 yo M with pMHx including seizure disorder, asthma, hepatitis C, L-spine/R knee arthritis, alcohol abuse, tobacco abuse, as well as psychiatric hx of depression, bipolar, h/o suicide attempt. Patient presented to [facility] emergency department on 01/08/19 with suicidal ideation wanting help as he was feeling he was losing control of his life. He was admitted to [facility] under the medical service for possible alcohol withdrawal symptoms. Admission diagnostics reviewed, no signif abnormalities noted on CBC, CMP, coag, TSH, UA, or EKG. Alcohol level on admission was 141. Patient certainly has multiple psychiatric risk factors (history of abuse, homelessness, unemployed, strained relationships with family, alcohol abuse), but upon further assessment of patient, there has been significant improvement/resolution of his symptoms of depression, and he is consistently denying, stating he made those statements as he was intoxicated and homeless and wanted help. There is ongoing anxiety related to his current financial and living situation but this is also improving with ongoing completion of applications to [place], and housing. Patient does not meet inpatient admission criteria. Patient history and outside records reviewed with psychiatrist, Dr. Bryant, who is involved in the management and medical decision-making of this patient's care. (1) Suicidal ideation: 01/09: -Further assessment will be required once somnolence improves. -Agree with suicide precautions at present: safety checks q15min, one-to-one observation, safe meal tray. -Patient is a voluntary medical floor admission at present, however, if patient continues to have SI, would need to consider involuntary admission. -Will need to obtain records of previous psychiatric care in outpatient and inpatient settings. -Management of depression and triggers as outlined below. -Family meeting may be helpful in the future. 01/10: -States resolution of SI, and identifies homelessness as main contributor. -Primary team may consider discontinuing SI precautions if patients remains free of SI thoughts. -Petition for 302 on file from ED psych CM if patient continues to have SI, but otherwise voluntary admission at present. -Obtain records of previous psychiatric care in outpatient and inpatient settings. -Management of depression and triggers as outlined, would benefit with discussion re: services and options with CM. -Family meeting may be helpful in the future. 01/11: -SI resolved, as main trigger (stress of being homeless) is being dealt with through support of CM -1:1 no longer needed for SI -Further management of depression and triggers as outlined below. (2) Depression: 01/09: -Further assessment will be required once somnolence improves. -Continue sertraline and trazodone. Though these can reduce seizure threshold, will avoid stopping psych meds if he has been on these prison. -Continue Keppra and Lamictal at present, although uncertain if these medications are primarily being used to manage seizure disorder or as mood stabilizers - will seek to clarify this through outside records. -Will need to obtain outside records of previous medication management. -Aftercare coordination with psychiatrist will likely be beneficial. 01/10: -No significant complaints of depressive symptoms. -Continue sertraline and trazodone. -Obtain records from outside providers re: previous med management. -Patient interested in establishing with mental healthcare provider in [facility] "depending on where he ends up," will work with patient on aftercare coordination. 01/11: -No significant complaints of depressive symptoms. -Continue sertraline and trazodone. -Outside records reviewed, patient was previously prescribed but did not initiate Zyprexa - do not see a reason to initiate this medication at present. -Outside records reveal multiple missed appts despite encouragement to seek care at [facility]. -Patient interested in establishing with mental healthcare provider in [facility], but aftercare options limited until transfer of [facility] residence application approved and MA application completed. -Recommend patient referral for blended CM services given multiple processes required to successfully obtain needed services, and patient easily overwhelmed. (3) Alcohol abuse: 01/09: -Given high risk of alcohol withdrawal symptoms/seizure, would recommend continued management on medical floor -Continue AWSS protocol active withdrawal protocol. -Take seizure precautions, monitor for seizures. -Would offer patient alcohol rehab. 01/10: -Patient not describing significant ongoing symptoms of withdrawal/DT/seizures since admission. -Defer to primary team to continue AWSS protocol as appropriate. -Encourage motivational interviewing/counseling on EtOH abuse and offer patient alcohol rehab. 01/11: -Patient denies symptoms of withdrawal/DT/seizures since admission. -Patient was offered rehab options by CM, but declined these. However, he is i nterested in the drug and alcohol program offered at [facility] -Continue to offer counseling on EtOH abuse, encourage cessation, and facilitate attendance at alcohol rehab program at patient's choice of location, as feasible. (4) Bipolar disorder: 01/09: -Further assessment will be required once somnolence improves. -Continue Keppra and Lamictal at present -Will need to obtain outside records of medication management. 01/10: -Patient believes he was diagnosed but never medically managed for bipolar. -Obtain outside records to elicit history of bipolar (symptoms, medication trials, management/admissions). -Continue Lamictal and Keppra at present. 01/11: -Patient not exhibiting manic symptoms -Continue Lamictal and Keppra. -No role for Zyprexa at present. (5) Seizure disorder: 01/09: -Will need to obtain outpatient records. 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 -Continue Lamictal, Keppra, and Topamax at present. -Monitor for seizures, take seizure precautions. -Treat alcohol/breakthrough seizures per AWSS protocol. 01/10: -H/o seizures 2/2 to benign brain tumor as well as alcohol withdrawal. -Patient claims compliance with medication, as well as regular follow up with neurologist. -Continue with home doses of Lamictal 200mg PO BID, Keppra 1,500mg PO BID, Topamax 200mg BID. -Patient amenable to record release from neurologist if necessary. 01/11: -Outside records note h/o benign brain tumour. Comment noted that MRI 09/15/17 showed no mass. Patient follows neurologist Dr. Valenzuela. -Continue with home doses of Lamictal 200mg PO BID, Keppra 1,500mg PO BID, Topamax 200mg BID (6) Tobacco abuse: 01/09: -Encourage motivational interviewing/counseling on tobacco cessation. -Agree with nicotine patch. Inventory Assets Strengths: ability to seek help, resolution of symptoms with removal of acute stressors Needs: outpatient care, alcohol rehab, employment, social support, housing Risk Factors Assessment Male: Yes : Yes Health Problems: Yes Mental Health Diagnoses: Yes Substance Use Disorders: Yes Previous Attempt: Yes Previous Attempt; Planned: Yes Previous Psychiatric Hospitalization: Yes Hopelessness: Yes Smoker: Yes Protective Factors Assessment Yarsanism Beliefs: No : No Responsible for Young Children: No Employed: No (Recently unemployed) Stable Relationships: No (Not with father) Supportive Family: Yes (Mother and brother) Interval History Identifying Information 33 yo M with pMHx including seizure disorder, asthma, hepatitis C, L-spine/R kn ee arthritis, alcohol abuse, tobacco abuse, as well as psychiatric hx of depression, bipolar, h/o suicide attempt. Patient presented to [facility] emergency department on 01/08/19 with intoxication and suicidal ideation and was admitted medically for alcohol withdrawal. Psychiatry was consulted for depression. Chief Complaint "I'm feeling excited today, I might have a place to stay". Review of Systems Notes Patient denies fevers/chills/night sweats, headaches, dizziness/lightheadedness, URI sx, chest discomfort, palpitations, dyspnea, abdominal pain, N/V, urinary sx, or any issues with stooling. He denies any ambulatory dysfunction or weakness/numbness/tingling of extremities. Pertinent positives are outlined in the HPI. Subjective Subjective Patient was seen & assessed and interval progress reviewed with the psychiatric liaison nurse and attending psychiatrist. Discussed that patient is improving from a mental health point of view and does not meet criteria for inpatient psychiatric admission. Outside records reveal patient was previously referred to [facility], but did not attend appointments. He has no outpatient care in [facility] his medical assistance is through another [facility]. The patient reports he is feeling much better this morning. He is excited, as after his attempts to contact multiple housing facilities, there may be a bed available for him at [facility] where they will provide him 3 meals a day, allow him to make $20/week income, and after a year, help him find other housing options. He notes that in the evenings, he will have Bible study, and though he is not uatsdin, he is curious about and open to the idea of this. He was told that since a lot of residents are recovering from alcoholism, they also hold AA meetings on the weekend. Though he was not interested in the alcohol and drug rehab options presented by [facility], he can see himself partaking in the program at [facility] At present, he states significant improvement in his mood and hopefulness. He is open to the idea of continuing with outpatient mental health care, though he has deferred appointments in the past. He still feels anxious about confirming this new housing as well as noting that transport to [place] will require coordination of multiple busses. However, he is keen to make this happen rapidly, especially as he was told they only have 1 bed available. He states resolution of his auditory hallucinations, SI, and never had HI. From an alcohol withdrawal standpoint, he denies seizures since admission, and does not endorse headaches, CP, palpitations, diaphoresis, or other active symptoms of withdrawal currently. He has not required lorazepam in >24 hours. He is at his baseline level of tremulous, which is secondary to his epilepsy. Per patient, he is tolerating PO, sleeping comfortably, and denies issues with ambulation. Physical Exam Psychiatric Well developed, well nourished male, sitting up in bed without evidence of acute distress. Orientation: alert, oriented x 3 and cooperative Apperance: appropriately groomed and appeared stated age Eye Contact: good eye contact Motor Behavior: no abnormal motor movements; no psychomotor agitation Speech: normal rate/rhythm/volume of speech Affect: euthymic affect; no depressed affect and no angry affect Mood: + anxious mood; no depressed mood Thought Process: goal directed thought process, linear/logical thought process and clear/coherent thought process Thought Content: reality based without delusions Suicidal Thoughts: denies suicidal thoughts Homicidal Thoughts: denies homicidal thoughts Hallucinations: no auditory hallucinations, no visual hallucinations and no tactile hallucinations Cognition: recent memory grossly intact, remote memory grossly intact, attention grossly intact and language grossly intact Estimated Intelligence: consistent with education level Insight: + fair insight Judgement: + fair judgement Vital Signs (Past 24 Hours) Last Vital Signs Temp 36.7 C 01/11/19 07:30 Pulse 78 01/11/19 07:30 Resp 20 01/11/19 07:30 BP 97/63 L 01/11/19 07:30 Pulse Ox 98 01/11/19 07:30 Results & Data Current Inpatient Medications Current Inpatient Medications: Current Inpatient Medications Acetaminophen (Ofirmev) 1,000 mg IV Q8H PRN PRN Reason: Pain or Fever Stop: 02/08/19 00:34 Acetaminophen (Tylenol) 650 mg PO Q4H PRN PRN Reason: Pain or Fever Stop: 02/08/19 00:34 Last Admin: 01/10/19 16:46 Dose: 650 mg Documented by: Albuterol (Ventolin Hfa) 2 puffs INH Q4H PRN PRN Reason: Shortness Of Breath Or Wheezin Stop: 02/08/19 00:34 Last Admin: 01/10/19 15:53 Dose: 2 puffs Documented by: Folic Acid (Folvite) 400 mcg PO QAM [facility] Stop: 02/07/19 17:29 Last Admin: 01/11/19 09:13 Dose: 400 mcg Documented by: Lorazepam (Ativan) 1 mg in 2 mls @ 2 mls/min IV UD PRN; Protocol PRN Reason: EtOH Withdrawl AWSS Score 6,7 Stop: 02/08/19 00:34 Last Admin: 01/09/19 08:59 Dose: 2 mls/min Documented by: Lorazepam (Ativan) 3 mg in 6 mls @ 4 mls/min IV ONCE PRN; Protocol PRN Reason: EtOH Withdrawl AWSS Score >=10 Stop: 02/08/19 00:34 Lorazepam (Ativan) 2 mg in 4 mls @ 4 mls/min IV UD PRN; Protocol PRN Reason: EtOH Withdrawl AWSS Score 8,9 Stop: 02/08/19 00:34 Lamotrigine (Lamictal) 200 mg PO BID [facility] Stop: 02/08/19 08:59 Last Admin: 01/11/19 09:09 Dose: 200 mg Documented by: Levetiracetam (Keppra) 1,500 mg PO BID [facility] Stop: 02/08/19 08:59 Last Admin: 01/11/19 09:09 Dose: 1,500 mg Documented by: Meloxicam (Mobic) 15 mg PO DAILY [facility] Stop: 02/08/19 08:59 Last Admin: 01/11/19 09:11 Dose: 15 mg Documented by: Miscellaneous (Remove Nicoderm Patch) 1 ea N/A HS [facility] Stop: 02/07/19 20:59 Last Admin: 01/10/19 21:46 Dose: 1 ea Documented by: Multivitamins (Multivitamin Tab) 1 tab PO QAM [facility] Stop: 02/07/19 17:29 Last Admin: 01/11/19 09:10 Dose: 1 tab Documented by: Nicotine (Nicoderm Cq) 21 mg TD QAM [facility] Stop: 02/07/19 17:44 Last Admin: 01/11/19 09:12 Dose: 21 mg Documented by: ~Fluticasone Prop& Salmeterol 55mcg/14mcg Inh~Non- Formulary Patient's Own Med 1 ea INH BID [facility]; Protocol Stop: 02/08/19 20:59 Last Admin: 01/11/19 09:12 Dose: 1 puffs Documented by: Ondansetron HCl (Zofran) 4 mg IV Q6H PRN PRN Reason: NAUSEA/VOMITING Stop: 02/08/19 00:34 Sertraline [facility] ([facility]oloft) [address] Stop: 02/08/19 08:59 Last Admin: 01/11/19 09:11 Dose: 50 mg Documented by: Sodium Chloride (Saline Lock Flush) 1 ea IV DAILY@1800 [facility] Stop: 02/08/19 17:59 Last Admin: 01/10/19 19:10 Dose: 1 ea Documented by: Thiamine HCl (Vitamin B-1) [address] [facility] Stop: 02/07/19 17:29 Last Admin: 01/11/19 09:10 Dose: 100 mg Documented by: Topiramate (Topamax) 200 mg PO BID [facility] Stop: 02/08/19 08:59 Last Admin: 01/11/19 09:11 Dose: 200 mg Documented by: Trazodone HCl (Desyrel) 300 mg PO [facility] Stop: 02/08/19 20:59 Last Admin: 01/10/19 21:48 Dose: 300 mg Documented by: Post Discharge Appointments Primary Care Physician Name Of Family Doctor: Alexander Valencia Resident Activity Tracking Resident Involvement: Resident Care Provided Care Provided: Adult Hospital Medicine
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
--- NOTE | 2019-01-12 08:58 | Coding Query ---
CODING QUERY To promote full compliance with coding requirements relating to patient care, provider participation is requested in all cases of geodesy teacher uncertainty. Please assist us with the question(s) below: Coding Question(s): The Discharge Summary documents both Alcohol Withdrawal and Alcohol Abuse. Alcohol Withdrawal is categorized as Alcohol Dependence and Alcohol Withdrawal cannot be coded as a diagnosis without documentation of Alcohol Dependence so determination needs to be made between Alcohol Abuse or Alcohol Dependence. Please clarify below, in your clinical opinion. (x ) Alcohol abuse ( ) Alcohol Dependence Physician's Response(s): Thank you Rachael Brandon Principal Diagnosis: "that condition established after study, to be chiefly responsible for occasioning the admission of the patient to the hospital for care." Co-Existing Principal Diagnosis: "when two or more diagnoses equally meet the criteria for principal diagnosis as determined by the circumstances of admission, diagnostic work up, and/or therapy provided, and the Alphabetic Index, Tabular List, or another coding guideline does not provide sequencing direction, any one of the diagnoses may be sequenced first." "When the physician has documented what appears to be a current diagnosis in the body of the record, but has not included the diagnosis in the final diagnostic statement, the physician should be asked whether the diagnosis should be added." (Source Coding [facility] 2 QTR90. p3-4) [facility]
== END 2019-01-11 11:40 | disposition home or self-care (01) | DRG 897 ==
LOC: ED 16:55 → 2N 23:09 → SUATTDRO 23:09 → 2N 01-09 00:20

== ENCOUNTER 2019-07-04 09:06 | Inpatient (IN) ==
[2019-07-04 09:43] LABS: Basophils # (auto) 0.03 K/uL (0-0.2); Basophils % (auto) 0.3 %; Eosinophils # (auto) 0.01 K/uL (0-0.5); Eosinophils % (auto) 0.1 %; Hemoglobin 13.8 g/dL (14.0-18.0); Immature Granulocytes # (auto) 0.02 K/uL (0.00-0.02); Immature Granulocytes % (auto) 0.2 %; Lymphocytes # (auto) 1.62 K/uL (1.2-3.4); Lymphocytes % (auto) 15.7 %; Mean Corpuscular Hemoglobin 30.7 pg (25-34); Mean Corpuscular Hgb Conc 34.5 g/dL (32-36); Mean Corpuscular Volume 89.1 fL (80-100); Mean Platelet Volume 8.2 fL (7.4-10.4); Monocytes # (auto) 0.53 K/uL (0.11-0.59); Monocytes % (auto) 5.1 %; Neutrophils # (auto) 8.09 K/uL (1.4-6.5); Neutrophils % (auto) 78.6 %; Platelet Count 407 K/uL (130-400); RDW Coefficient of Variation 14.3 % (11.5-14.5); RDW Standard Deviation 46.5 fL (36.4-46.3); Red Blood Count 4.49 M/uL (4.7-6.1)
[2019-07-04 09:58] LABS: Albumin Level 3.4 gm/dl (3.4-5.0); Calcium 9.1 mg/dl (8.5-10.1); Creatinine Clr Calc Pharmacy 158.2 ml/min; Est GFR (African American) 140.9; Est GFR (Non-African American) 121.6; Potassium 3.5 mmol/L (3.5-5.1)
[2019-07-04 10:07] LABS: Acetaminophen < 2 ug/ml (10-30); Salicylate 2.5 mg/dl (2.8-20)
[2019-07-04 10:09] LABS: Albumin Globulin Ratio 0.9 (0.9-2); Bilirubin,Total 0.4 mg/dl (0.2-1); Globulin 3.9 gm/dl (2.5-4.0); Thyroid Stimulating Hormone 0.099 uIu/ml (0.300-4.500); Total Protein 7.3 gm/dl (6.4-8.2)
[2019-07-04 10:21] LABS: T4 Free Thyroxine 0.91 ng/dl (0.8-1.6)
[2019-07-04 11:03] LABS: Appearance Urine Clear (Clear); Bilirubin Urine Negative (Negative); Blood Urine Negative (Negative); Color Urine Yellow; Glucose Urine UA Negative (Negative); Ketones Urine Negative (Negative); Leukocyte Esterase Urine Negative (Negative); Nitrite Urine Negative (Negative); Protein Urine Negative (Negative); Specific Gravity Urine 1.013 (1.000-1.030); Urobilinogen Urine Negative (Negative); pH Urine 5.5 (4.5-7.5)
[2019-07-04 11:07] LABS: Amphetamines+Metham, Urine Neg (Neg); Barbiturates, Urine Neg (Neg); Benzodiazepine, Urine Neg (Neg); Cocaine, Urine Neg (Neg); MDMA (Ecstacy), Urine Neg (Neg); Methadone, Urine Neg (Neg); Opiate, Urine Neg (Neg); Phencyclidine, Urine Neg (Neg)
--- NOTE | 2019-07-04 12:05 | Emergency Department Note ---
Entered by Chilo Clark acting as a scribe for Shabana Herring MD History of Present Illness General Chief Complaint: Mental Health Evaluation Source: patient History of Present Illness Provider complaint: suicidal ideation Onset (ago): unknown Duration: getting worse History of same: Yes Context: + not taking psychiatric medications and + significant life stressor Associated psychiatric symptoms: + depression and + suicidal ideation; no homicidal ideation If self harm: + admits thoughts of self harm The patient is a 34 year old male who presents to the Emergency Room with complaints of suicidal ideation that has been an ongoing issue for years but became acutely worse over the past 2 weeks. The patient states that he got into a fight with his brother and was subsequently kicked out of his house so he has been homeless. Since this time he has been staying with friends and walking around. The patient also mentioned that he has not been taking his medications but he is unsure of how long it has been since he last did. The patient adds th at his suicidal thoughts have been present for a long time but he states this fight put him over the edge so he finally called 911 for help this morning. The patient recalls that he has multiple different plans to kill himself including hanging himself or cutting his throat. The patient has a history of suicide having attempted to overdose in the past. The patient reports that he has never been treated as an inpatient for psych treatment and he is unsure if he has ever seen a psychiatrist or therapist. The patient does admit to smoking cigarettes daily and occasionally drinking alcohol but denies any drug use. Home Medications Home Medications Medication Instructions Recorded Confirmed Type levetiracetam [Keppra] 1,500 mg PO BID #0 tab 01/12/13 07/04/19 History sertraline 50 mg PO QAM #0 tab 01/12/13 07/04/19 History albuterol sulfate [Ventolin HFA] 2 puff INHALATION q4-6h PRN #0 05/15/15 07/04/19 History meloxicam 15 mg PO DAILY #0 05/19/15 07/04/19 History topiramate [Topamax] 200 mg PO BID #60 06/10/16 07/04/19 History lamotrigine [Lamictal] 200 mg PO BID 12/06/18 07/04/19 History fluticasone propion-salmeterol 1 puff INHALATION BID 01/08/19 07/04/19 History trazodone 300 mg PO HS 01/08/19 07/04/19 History Allergies Allergy/AdvReac Type Severity Reaction Status Date / Time amoxicillin Allergy Unknown UNKNOWN Verified 07/04/19 09:28 clavulanic acid Allergy Unknown UNKNOWN Verified 07/04/19 09:28 Past Med/Surg History Medical History (Updated 07/05/19 @ 18:32 by Alice Dewitt MD) Bipolar disorder Depression Hepatitis C, chronic Seizure disorder Tobacco abuse Family History (Updated 07/05/19 @ 18:13 by Alice Dewitt MD) Brother No problems noted. Other No pertinent family history in first degree relatives Social History Preferred Language: [place] Communication Ability: Effective Surveying Teacher Required: No Beliefs That Will Affect Care: None Current Living Situation: Homeless Feels Safe at Home: Yes Hx Alcohol Use: Yes Alcohol type: beer Hx Substance Use: No Review of Systems See HPI for pertinent positives & negatives. and A total of 10 systems reviewed and were otherwise negative Physical Exam Vital Signs Vital Signs - 24 hr 07/04/19 09:20 07/04/19 10:27 Temperature 37.3 C Temperature Source Oral Pulse Rate 100 H Pulse Rate [Left Finger] 101 H Respiratory Rate 18 18 Respiratory Effort / Characteristics Non-Labored Spontaneous Non-Labored Respiratory Depth Normal Normal Blood Pressure 130/83 Blood Pressure [Left Arm] 117/69 Blood Pressure Mean 98 Blood Pressure Mean [Left Arm] 85 Pulse Oximetry 98 100 Oxygen Delivery Method Room Air Room Air Sepsis Recent Fever Within 48 Hours No Sepsis New/Unexplained Change in Mental Status No Sepsis Action Taken by Nursing No Action Required Vital signs reviewed. General: Well-appearing 34 year old male, in no significant distress. HEENT: No scleral injection, Left periorbital healing ecchymosis. EOMI Cardiovascular: Regular rate and rhythm, no extra sounds. Pulmonary: Clear to auscultation bilaterally, normal work of breathing. Abdomen: Soft, nontender, nondistended, positive bowel sounds. Musculoskeletal: Atraumatic, no peripheral edema. Neurologic: Patient awake alert and oriented x 3 Skin: Warm, dry, no rash Psych: Positive SI with plan. Negative HI. Course 923: Past medical records reviewed. The patient was evaluated in room A07, and a complete history and physical examination were performed. 1310: The patient has been evaluated by the psych showcase maker who has reached out to [address] [place] [address] to see if they will accept the patient. 1355: [facility] is refusing the patient until he is evaluated by a neurologist and is put back on medication for his seizures. 1418: I spoke to the [address] [place] [address] psychiatrist about the patient's case and seizure treatment. [address] [place] [address] has agreed to accept the patient for inpatient psychological treatment. Administered Medications Lamotrigine (Lamictal) 25 mg PO QAM [facility] Stop: 08/04/19 12:29 Last Admin: 07/07/19 09:08 Dose: 25 mg Documented by: [id number] Admin: 07/06/19 08:08 Dose: 25 mg Documented by: [id number] Admin: 07/05/19 12:50 Dose: 25 mg Documented by: [id number] Levetiracetam (Keppra) 1,500 mg PO BID [facility] Stop: 08/04/19 08:59 Last Admin: 07/07/19 09:08 Dose: 1,500 mg Documented by: [id number] Admin: 07/06/19 21:04 Dose: 1,500 mg Documented by: [id number] Admin: 07/06/19 08:07 Dose: 1,500 mg Documented by: [id number] Admin: 07/05/19 20:54 Dose: 1,500 mg Documented by: [id number] Admin: 07/05/19 09:35 Dose: 1,500 mg Documented by: [id number] Miscellaneous (Remove Nicoderm Patch) 1 ea N/A DAILY@0859 [facility] Stop: 08/04/19 08:58 Last Admin: 07/07/19 09:08 Dose: 1 ea Documented by: [id number] Admin: 07/06/19 08:07 Dose: 1 ea Documented by: [id number] Admin: 07/05/19 09:40 Dose: Not Given Documented by: [id number] Nic[facility] ([facility] Cq) [facility] Stop: 08/04/19 08:59 Last Admin: 07/07/19 09:08 Dose: 21 mg Documented by: [id number] Admin: 07/06/19 08:01 Dose: 21 mg Documented by: [id number] Admin: 07/05/19 09:40 Dose: 21 mg Documented by: [id number] Fluticasone/Salmeterol (Advair Diskus 100/50) 1 puffs INH BID [facility]; Protocol Stop: 08/04/19 20:59 Last Admin: 07/07/19 09:07 Dose: 1 puffs Documented by: [id number] Admin: 07/06/19 21:05 Dose: 1 puffs Documented by: [id number] Admin: 07/06/19 08:07 Dose: 1 puffs Documented by: [id number] Admin: 07/05/19 20:54 Dose: 1 puffs Documented by: [id number] Sertraline HCl (Zoloft) 100 mg PO QAM [facility] Stop: 08/05/19 08:59 Last Admin: 07/07/19 09:08 Dose: 100 mg Documented by: [id number] Admin: 07/06/19 08:08 Dose: 100 mg Documented by: [id number] Topiramate (Topamax) 100 mg PO BID [facility] Stop: 08/03/19 20:59 Last Admin: 07/07/19 09:08 Dose: 100 mg Documented by: [id number] Admin: 07/06/19 21:04 Dose: 100 mg Documented by: [id number] Admin: 07/06/19 08:08 Dose: 100 mg Documented by: [id number] Admin: 07/05/19 20:54 Dose: 100 mg Documented by: [id number] Admin: 07/05/19 09:35 Dose: 100 mg Documented by: [id number] Admin: 07/04/19 20:51 Dose: 100 mg Documented by: [id number] Trazodone HCl (Desyrel) 150 mg PO [facility] Stop: 08/03/19 21:59 Last Admin: 07/06/19 21:03 Dose: 150 mg Documented by: [id number] Admin: 07/05/19 20:54 Dose: 150 mg Documented by: [id number] Admin: 07/04/19 20:52 Dose: 150 mg Documented by: [id number] Discontinued Medications Gabapentin (Neurontin) 1,200 mg PO TODAY@1315 [facility] Stop: 07/05/19 13:16 Last Admin: 07/05/19 14:13 Dose: 1,200 mg Documented by: [id number] Gabapentin (Neurontin) 600 mg PO Q6H [facility] Stop: 07/06/19 01:01 Last Admin: 07/05/19 18:38 Dose: 600 mg Documented by: [id number] Influenza Virus Vaccine Quadrival (Flucelvax Quad Vaccine) 0.5 ml IM .ONCE ONE Stop: 07/05/19 11:01 Last Admin: 07/05/19 11:55 Dose: Not Given Documented by: [id number] Levetiracetam (Keppra) 1,500 mg PO ONE ONE Stop: 07/04/19 13:58 Last Admin: 07/04/19 14:48 Dose: 1,500 mg Documented by: [id number] Miscellaneous (Order Awaiting Action) 1 ea N/A QS [facility] Stop: 08/04/19 00:00 Last Admin: 07/06/19 21:28 Dose: Not Given Documented by: [id number] Admin: 07/05/19 09:40 Dose: Not Given Documented by: [id number] Sertraline HCl (Zoloft) 50 mg PO NOW ONE Stop: 07/05/19 12:31 Last Admin: 07/05/19 12:50 Dose: 50 mg Documented by: [id number] Topiramate (Topamax) 100 mg PO NOW STA Stop: 07/04/19 13:58 Last Admin: 07/04/19 14:48 Dose: 100 mg Documented by: [id number] Medical Decision Making Differential Diagnosis Differential diagnoses considered include mood disorder, infection, hypoglycemia, electrolyte abnormalities, cardiac sources, intracerebral event, toxicologic, neurologic, as well as others. Medical Records Attestation: I reviewed the patient's medical records. Home Medications Current Medication List: was personally reviewed by me Laboratory Data Attestation: I reviewed the patient's lab results. Result diagrams: 07/04/19 09:28 07/04/19 09:28 Lab Results 07/04/19 07/04/19 07/04/19 Range/Units 09:28 09:28 09:28 WBC 10.30 (4.8-10.8) K/uL RBC 4.49 L (4.7-6.1) M/uL Hgb 13.8 L (14.0-18.0) g/dL Hct 40.0 L (42-52) % MCV 89.1 (80-100) fL MCH 30.7 (25-34) pg MCHC 34.5 (32-36) g/dL RDW Std Deviation 46.5 H (36.4-46.3) fL RDW Coeff of Sweetie 14.3 (11.5-14.5) % Plt Count 407 H (130-400) K/uL MPV 8.2 (7.4-10.4) fL Immature Gran % (Auto) 0.2 % Neut % (Auto) 78.6 % Lymph % (Auto) 15.7 % [place] % (Auto) 5.1 % Eos % (Auto) 0.1 % Baso % (Auto) 0.3 % Immature Gran # (Auto) 0.02 (0.00-0.02) K/uL Neut # (Auto) 8.09 H (1.4-6.5) K/uL Lymph # (Auto) 1.62 (1.2-3.4) K/uL [place] # (Auto) 0.53 (0.11-0.59) K/uL Eos # (Auto) 0.01 (0-0.5) K/uL Baso # (Auto) 0.03 (0-0.2) K/uL Sodium 140 (136-145) mmol/L Potassium 3.5 (3.5-5.1) mmol/L Chloride 107 (98-107) mmol/L Carbon Dioxide 28 (21-32) mmol/L Anion Gap 5.0 (3-11) BUN 13 (7-18) mg/dl Creatinine 0.71 (0.6-1.4) mg/dl Est Cr Clr Drug Dosing 158.2 ml/min Est GFR ( Amer) 140.9 Est GFR (Non-Af Amer) 121.6 BUN/Creatinine Ratio 18.0 (10-20) Glucose 97 (70-99) mg/dl Calcium 9.1 (8.5-10.1) mg/dl Total Bilirubin 0.4 (0.2-1) mg/dl AST 51 H (15-37) U/L ALT 54 (12-78) U/L Alkaline Phosphatase 120 H (45-117) U/L Total Protein 7.3 (6.4-8.2) gm/dl Albumin 3.4 (3.4-5.0) gm/dl Globulin 3.9 (2.5-4.0) gm/dl Albumin/Globulin Ratio 0.9 (0.9-2) TSH 0.099 L (0.300-4.500) uIu/ml Free T4 0.91 (0.8-1.6) ng/dl Urine Color Urine Appearance (Clear) Urine pH (4.5-7.5) Ur Specific [place] (1.000-1.030) Urine Protein (Negative) Urine Glucose (UA) (Negative) Urine Ketones (Negative) Urine Blood (Negative) Urine Nitrite (Negative) Urine Bilirubin (Negative) Urine Urobilinogen (Negative) Ur Leukocyte Esterase (Negative) Salicylates 2.5 L (2.8-20) mg/dl Urine Opiates Screen (Neg) Ur Methadone, Qual (Neg) Acetaminophen < 2 L (10-30) ug/ml Urine Barbiturates (Neg) Ur Phencyclidine (PCP) (Neg) U Amphetamin/Meth Scrn (Neg) MDMA (Ecstasy) Screen (Neg) U Benzodiazepines Scrn (Neg) Ur Cocaine Metabolite (Neg) U Marijuana (THC) Screen (Neg) Ethyl Alcohol mg/dL (0-3) mg/dl 07/04/19 07/04/19 07/04/19 Range/Units 09:28 10:30 10:30 WBC (4.8-10.8) K/uL RBC (4.7-6.1) M/uL Hgb (14.0-18.0) g/dL Hct (42-52) % MCV (80-100) fL MCH (25-34) pg MCHC (32-36) g/dL RDW Std Deviation (36.4-46.3) fL RDW Coeff of Sweetie (11.5-14.5) % Plt Count (130-400) K/uL MPV (7.4-10.4) fL Immature Gran % (Auto) % Neut % (Auto) % Lymph % (Auto) % [place] % (Auto) % Eos % (Auto) % Baso % (Auto) % Immature Gran # (Auto) (0.00-0.02) K/uL Neut # (Auto) (1.4-6.5) K/uL Lymph # (Auto) (1.2-3.4) K/uL [place] # (Auto) (0.11-0.59) K/uL Eos # (Auto) (0-0.5) K/uL Baso # (Auto) (0-0.2) K/uL Sodium (136-145) mmol/L Potassium (3.5-5.1) mmol/L Chloride (98-107) mmol/L Carbon Dioxide (21-32) mmol/L Anion Gap (3-11) BUN (7-18) mg/dl Creatinine (0.6-1.4) mg/dl Est Cr Clr Drug Dosing ml/min Est GFR ( Amer) Est GFR (Non-Af Amer) BUN/Creatinine Ratio (10-20) Glucose (70-99) mg/dl Calcium (8.5-10.1) mg/dl Total Bilirubin (0.2-1) mg/dl AST (15-37) U/L ALT (12-78) U/L Alkaline Phosphatase (45-117) U/L Total Protein (6.4-8.2) gm/dl Albumin (3.4-5.0) gm/dl Globulin (2.5-4.0) gm/dl Albumin/Globulin Ratio (0.9-2) TSH (0.300-4.500) uIu/ml Free T4 (0.8-1.6) ng/dl Urine Color Yellow Urine Appearance Clear (Clear) Urine pH 5.5 (4.5-7.5) Ur Specific [place] 1.013 (1.000-1.030) Urine Protein Negative (Negative) Urine Glucose (UA) Negative (Negative) Urine Ketones Negative (Negative) Urine Blood Negative (Negative) Urine Nitrite Negative (Negative) Urine Bilirubin Negative (Negative) Urine Urobilinogen Negative (Negative) Ur Leukocyte Esterase Negative (Negative) Salicylates (2.8-20) mg/dl Urine Opiates Screen Neg (Neg) Ur Methadone, Qual Neg (Neg) Acetaminophen (10-30) ug/ml Urine Barbiturates Neg (Neg) Ur Phencyclidine (PCP) Neg (Neg) U Amphetamin/Meth Scrn Neg (Neg) MDMA (Ecstasy) Screen Neg (Neg) U Benzodiazepines Scrn Neg (Neg) Ur Cocaine Metabolite Neg (Neg) U Marijuana (THC) Screen Neg (Neg) Ethyl Alcohol mg/dL 57.2 H (0-3) mg/dl Blood Pressure Blood Pressure Findings: Normal blood pressure MDM Narrative This pt was medically cleared and evaluated by the showcase maker. Pt was felt to meet inpt criteria based on SI w plan. Case was referred to [facility] and accepted for admission on a voluntary basis. He was given keppra 1500mg po (home dose) and topamax 100mg po in the ED. Impression & Plan Mood disorder Discharge Plan Visit Data *Final* Discharge Date/Time: 07/04/19 15:38 Chief Complaint: Mental Health Evaluation ED Provider: Shabana Herring Discharge Problem: Mood disorder Patient Disposition: Admitted As Inpatient Discharge Instructions Interventions: ED Discharge Assessment Last Done: 07/04/19 15:38 The scribe's documentation has been prepared under my direction and personally reviewed by me in its entirety. I confirm that the note above accurately reflects all work, treatment, procedures, and medical decision making performed by me.
[2019-07-04] MEDS ORDERED: levETIRAcetam 500 MG TAB PO ONE (13:57)
[2019-07-04] MEDS ORDERED: TOPIRAMATE 100 MG TAB PO STA (13:57)
[2019-07-04] MEDS ORDERED: BISMUTH SUBSALICYLATE PER ML OMNICELL CHARGE PO PRN (16:03)
[2019-07-04] MEDS ORDERED: SODIUM CHLORIDE 0.65% NA SOLN 45 ML (OCEAN) PRN (16:03)
[2019-07-04] MEDS ORDERED: ALUMINUM/MAGNESIUM SUSP 30 ML UDC PO PRN (16:03)
[2019-07-04] MEDS ORDERED: LORazepam 2 MG/ML VIAL (IM USE) IM PRN (17:20)
[2019-07-04] MEDS: TOPIRAMATE 100 MG TAB PO SCH (20:51)
[2019-07-04] MEDS: TRAZODONE HCL 50 MG TAB PO SCH (20:52)
[2019-07-04] MEDS ORDERED: TRAZODONE HCL 100 MG TAB PO SCH (21:00)
[2019-07-05] MEDS: TOPIRAMATE 100 MG TAB PO SCH ×2 (09:35→20:54)
[2019-07-05] MEDS: levETIRAcetam 500 MG TAB PO SCH ×2 (09:35→20:54)
[2019-07-05] MEDS: NICOTINE 21 MG/24 HR TDSY TD SCH (09:40)
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
[2019-07-05] MEDS ORDERED: SERTRALINE HCL 50 MG TABLET PO ONE (12:30)
[2019-07-05] MEDS ORDERED: LORazepam 1 MG TAB PO PRN (12:43)
[2019-07-05] MEDS ORDERED: GABAPENTIN 1200MG ALCOHOL WITHDRAWAL LOAD PO STA (12:43)
[2019-07-05] MEDS: lamoTRIgine 25 MG TAB PO SCH (12:50)
[2019-07-05] MEDS ORDERED: GABAPENTIN 600 MG TAB PO SCH ×2 (13:15→19:00)
[2019-07-05] MEDS: FLUTICASONE/SALMETEROL 100/50 (ADVAIR) 14 PUFF/1 INHALER INH SCH (20:54)
[2019-07-05] MEDS: TRAZODONE HCL 50 MG TAB PO SCH (20:54)
[2019-07-06] MEDS: NICOTINE 21 MG/24 HR TDSY TD SCH (08:01)
[2019-07-06] MEDS: levETIRAcetam 500 MG TAB PO SCH ×2 (08:07→21:04)
[2019-07-06] MEDS: FLUTICASONE/SALMETEROL 100/50 (ADVAIR) 14 PUFF/1 INHALER INH SCH ×2 (08:07→21:05)
[2019-07-06] MEDS: lamoTRIgine 25 MG TAB PO SCH (08:08)
[2019-07-06] MEDS: SERTRALINE HCL 100 MG TABLET PO SCH (08:08)
[2019-07-06] MEDS: TOPIRAMATE 100 MG TAB PO SCH ×2 (08:08→21:04)
[2019-07-06] MEDS ORDERED: GABAPENTIN 600 MG TAB PO SCH (09:00)
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
[2019-07-06] MEDS: TRAZODONE HCL 50 MG TAB PO SCH (21:03)
[2019-07-07] MEDS: FLUTICASONE/SALMETEROL 100/50 (ADVAIR) 14 PUFF/1 INHALER INH SCH ×2 (09:07→21:55)
[2019-07-07] MEDS: levETIRAcetam 500 MG TAB PO SCH ×2 (09:08→21:55)
[2019-07-07] MEDS: TOPIRAMATE 100 MG TAB PO SCH ×2 (09:08→21:54)
[2019-07-07] MEDS: NICOTINE 21 MG/24 HR TDSY TD SCH (09:08)
[2019-07-07] MEDS: lamoTRIgine 25 MG TAB PO SCH (09:08)
[2019-07-07] MEDS: SERTRALINE HCL 100 MG TABLET PO SCH (09:08)
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
[2019-07-07] MEDS ORDERED: GABAPENTIN 600 MG TAB PO SCH (13:00)
[2019-07-07] MEDS: ACETAMINOPHEN 325 MG TAB PO PRN (15:35)
[2019-07-07] MEDS: TRAZODONE HCL 50 MG TAB PO SCH (21:54)
[2019-07-08] MEDS: NICOTINE 21 MG/24 HR TDSY TD SCH (08:18)
[2019-07-08] MEDS: levETIRAcetam 500 MG TAB PO SCH ×2 (08:19→22:07)
[2019-07-08] MEDS: FLUTICASONE/SALMETEROL 100/50 (ADVAIR) 14 PUFF/1 INHALER INH SCH ×2 (08:19→22:07)
[2019-07-08] MEDS: lamoTRIgine 25 MG TAB PO SCH (08:19)
[2019-07-08] MEDS: SERTRALINE HCL 100 MG TABLET PO SCH (08:20)
[2019-07-08] MEDS: TOPIRAMATE 100 MG TAB PO SCH ×2 (08:20→22:08)
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
[2019-07-08] MEDS ORDERED: COUGH DROP (SUGAR FREE) LOZ 24 LOZ/1 BOX BUCCAL PRN (11:43)
[2019-07-08] MEDS: DOCUSATE SODIUM 100 MG CAP PO SCH ×2 (12:46→22:07)
[2019-07-08] MEDS: ACETAMINOPHEN 325 MG TAB PO PRN (13:52)
[2019-07-08] MEDS: TRAZODONE HCL 100 MG TAB PO SCH (22:07)
[2019-07-09] MEDS ORDERED: GABAPENTIN 600 MG TAB PO SCH (01:00)
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
[2019-07-09] MEDS: FLUTICASONE/SALMETEROL 100/50 (ADVAIR) 14 PUFF/1 INHALER INH SCH ×2 (08:34→21:38)
[2019-07-09] MEDS: lamoTRIgine 25 MG TAB PO SCH (08:35)
[2019-07-09] MEDS: levETIRAcetam 500 MG TAB PO SCH ×2 (08:35→21:39)
[2019-07-09] MEDS: DOCUSATE SODIUM 100 MG CAP PO SCH ×2 (08:35→21:39)
[2019-07-09] MEDS: NICOTINE 21 MG/24 HR TDSY TD SCH (08:35)
[2019-07-09] MEDS: SERTRALINE HCL 100 MG TABLET PO SCH (08:37)
[2019-07-09] MEDS: TOPIRAMATE 100 MG TAB PO SCH ×2 (08:37→21:39)
[2019-07-09] MEDS: TRAZODONE HCL 100 MG TAB PO SCH (21:39)
[2019-07-10] MEDS: NICOTINE 21 MG/24 HR TDSY TD SCH (08:26)
[2019-07-10] MEDS: FLUTICASONE/SALMETEROL 100/50 (ADVAIR) 14 PUFF/1 INHALER INH SCH ×2 (08:27→21:38)
[2019-07-10] MEDS: DOCUSATE SODIUM 100 MG CAP PO SCH ×2 (08:30→21:40)
[2019-07-10] MEDS: levETIRAcetam 500 MG TAB PO SCH ×2 (08:31→21:40)
[2019-07-10] MEDS: TOPIRAMATE 100 MG TAB PO SCH ×2 (08:32→21:40)
[2019-07-10] MEDS: lamoTRIgine 25 MG TAB PO SCH (08:32)
[2019-07-10] MEDS: SERTRALINE HCL 100 MG TABLET PO SCH (08:32)
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
[2019-07-10] MEDS: TRAZODONE HCL 100 MG TAB PO SCH (21:41)
[2019-07-11] MEDS: FLUTICASONE/SALMETEROL 100/50 (ADVAIR) 14 PUFF/1 INHALER INH SCH ×2 (08:30→21:55)
[2019-07-11] MEDS: NICOTINE 21 MG/24 HR TDSY TD SCH (08:32)
[2019-07-11] MEDS: lamoTRIgine 25 MG TAB PO SCH (08:32)
[2019-07-11] MEDS: levETIRAcetam 500 MG TAB PO SCH ×2 (08:32→21:56)
[2019-07-11] MEDS: TOPIRAMATE 100 MG TAB PO SCH ×2 (08:33→21:56)
[2019-07-11] MEDS: SERTRALINE HCL 100 MG TABLET PO SCH (08:33)
[2019-07-11] MEDS: DOCUSATE SODIUM 100 MG CAP PO SCH ×2 (09:25→21:56)
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
[2019-07-11] MEDS: POLYETHYLENE (MIRALAX) 17 GM PACK PO PRN (11:13)
[2019-07-11] MEDS: TRAZODONE HCL 100 MG TAB PO SCH (21:57)
[2019-07-12] MEDS: FLUTICASONE/SALMETEROL 100/50 (ADVAIR) 14 PUFF/1 INHALER INH SCH ×2 (09:15→21:28)
[2019-07-12] MEDS: levETIRAcetam 500 MG TAB PO SCH ×2 (09:16→21:12)
[2019-07-12] MEDS: DOCUSATE SODIUM 100 MG CAP PO SCH ×2 (09:16→21:12)
[2019-07-12] MEDS: SERTRALINE HCL 100 MG TABLET PO SCH (09:16)
[2019-07-12] MEDS: lamoTRIgine 25 MG TAB PO SCH (09:16)
[2019-07-12] MEDS: TOPIRAMATE 100 MG TAB PO SCH ×2 (09:16→21:12)
[2019-07-12] MEDS: NICOTINE 21 MG/24 HR TDSY TD SCH (09:20)
[2019-07-12] MEDS: POLYETHYLENE (MIRALAX) 17 GM PACK PO PRN (09:23)
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
[2019-07-12] MEDS: MAGNESIUM HYDROXIDE SUSP 30 ML UDC PO PRN (14:42)
[2019-07-12] MEDS: TRAZODONE HCL 100 MG TAB PO SCH (21:12)
[2019-07-13] MEDS: TOPIRAMATE 100 MG TAB PO SCH ×2 (08:35→21:27)
[2019-07-13] MEDS: levETIRAcetam 500 MG TAB PO SCH ×2 (08:35→21:26)
[2019-07-13] MEDS: DOCUSATE SODIUM 100 MG CAP PO SCH ×2 (08:35→21:26)
[2019-07-13] MEDS: NICOTINE 21 MG/24 HR TDSY TD SCH (08:35)
[2019-07-13] MEDS: lamoTRIgine 25 MG TAB PO SCH (08:35)
[2019-07-13] MEDS: SERTRALINE HCL 100 MG TABLET PO SCH (08:36)
[2019-07-13] MEDS: FLUTICASONE/SALMETEROL 100/50 (ADVAIR) 14 PUFF/1 INHALER INH SCH ×2 (09:03→21:25)
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
[2019-07-13] MEDS: MAGNESIUM HYDROXIDE SUSP 30 ML UDC PO PRN (11:25)
[2019-07-13] MEDS: ALBUTEROL HFA 8 GM INHALER INH PRN (15:42)
[2019-07-13] MEDS: TRAZODONE HCL 100 MG TAB PO SCH (21:27)
[2019-07-14] MEDS: DOCUSATE SODIUM 100 MG CAP PO SCH ×2 (08:49→21:05)
[2019-07-14] MEDS: TOPIRAMATE 100 MG TAB PO SCH ×2 (08:49→21:06)
[2019-07-14] MEDS: NICOTINE 21 MG/24 HR TDSY TD SCH (08:49)
[2019-07-14] MEDS: levETIRAcetam 500 MG TAB PO SCH ×2 (08:49→21:05)
[2019-07-14] MEDS: FLUTICASONE/SALMETEROL 100/50 (ADVAIR) 14 PUFF/1 INHALER INH SCH ×2 (08:49→21:05)
[2019-07-14] MEDS: lamoTRIgine 25 MG TAB PO SCH (08:49)
[2019-07-14] MEDS: SERTRALINE HCL 100 MG TABLET PO SCH (08:49)
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
[2019-07-14] MEDS: POLYETHYLENE (MIRALAX) 17 GM PACK PO PRN (10:38)
[2019-07-14] MEDS: ALBUTEROL HFA 8 GM INHALER INH PRN (10:58)
[2019-07-14] MEDS: MAGNESIUM HYDROXIDE SUSP 30 ML UDC PO PRN (18:18)
[2019-07-14] MEDS: TRAZODONE HCL 100 MG TAB PO SCH (21:06)
[2019-07-15] MEDS: FLUTICASONE/SALMETEROL 100/50 (ADVAIR) 14 PUFF/1 INHALER INH SCH (08:39)
[2019-07-15] MEDS: levETIRAcetam 500 MG TAB PO SCH (08:39)
[2019-07-15] MEDS: lamoTRIgine 25 MG TAB PO SCH (08:39)
[2019-07-15] MEDS: DOCUSATE SODIUM 100 MG CAP PO SCH (08:39)
[2019-07-15] MEDS: NICOTINE 21 MG/24 HR TDSY TD SCH (08:40)
[2019-07-15] MEDS: SERTRALINE HCL 100 MG TABLET PO SCH (08:40)
[2019-07-15] MEDS: TOPIRAMATE 100 MG TAB PO SCH (08:40)
--- NOTE | 2019-07-15 09:07 | Discharge Summary ---
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 He remains at high seizure risk with his alcohol use after a binge and at times of withdrawal 07/06 - Continue as above (5) Asthma: monitor and continue albuterol and fluticasone Mental Health & Subst Abuse Tx Therapist Name of Therapist: None Supervisor Adult Education Name of Supervisor Adult Education: None Post Discharge Appointments Primary Care Physician Name Of Family Doctor: YAMILET Allen Primary Care Provider Appointment Comment: [address] [place] [address] [address], [place] [address] Smoking Cessation Counseling Tobacco Cessation Medication Prescribed at Discharge: Offered & Prescribed Other #1: Name of Aftercare Appointment: [facility] Phone Number of Aftercare Appointment: [phone] Date of Aftercare Appointment: 07/15/19 Time of Aftercare Appointment: Will transport from [facility] to [facility] Appointment Comment: [facility]patient [facility] Contact Information Discharge Discharge Address: Currently homeless, will be transported to [facility] Discharge Plan Discharge Items Patient Disposition: Drug & Alcohol Rehab Reason For Visit: MDD Discharge Diagnosis: Mood disorder Activity: Resume your previous activity Non-emergency contact: Primary Care Provider Call non-emergency contact if: you have any medication questions and your symptoms worsen Follow-up/Referrals: PCP,NO [Primary Care Provider] - Diet: Regular Addtl Attending Provider Instructions: FINAL DISCHARGE INSTRUCTIONS WILL BE PREPARED AND PROVIDED TO YOU BY ACCEPTING REHAB FACILITY. FOLLOW RECOMMENDATIONS PROVIDED FOR YOU AFTER COMPLETION OF THEIR PROGRAM. SPECIAL CARE INSTRUCTIONS: 1. Follow through with your scheduled aftercare appointments. If unable to keep an appointment, please call to reschedule. 2. Take your medication only as prescribed. Medication should not be changed or stopped without the approval of your doctor. In the event of worsening symptoms or concerns about side effects, contact your doctor immediately. 3. Utilize new healthy coping skills, anger management skills, and stress management skills learned during your hospitalization. Journal feelings and process them with a support person. Identify stressors or situations that may result in relapse, deterioration or inappropriate behaviors and develop a plan to deal with those issues. 4. If your coping skills are ineffective and you are in crisis, contact your outpatient providers for direction. If unable to reach your providers, please call the CAN HELP LINE AT or go to the closest Emergency Room. 5. Avoid alcohol and un-prescribed drugs. 6. You have been provided with the Mental Health Advance Directives Pamphlet for your review. AFTERCARE APPOINTMENTS: * Please call your insurance company prior to your scheduled appointment to confirm your aftercare providers are covered. Take your insurance information to your appointments. WHO TO CALL AND WHEN: Medical Emergencies: For questions or emergencies related to your hospital stay, please contact the Inpatient Behavioral Health Unit at [phone]. A sewer hand is on-call 15/02 for the Behavioral Health Unit for emergencies At any time you feel your situation is an emergency, you may also call 911 immediately. Your Discharge Instructions noted above were prepared by provider Julee Renner PA-C. Pending Studies at Discharge: No Stand-Alone Forms: My [facility] [employer], Suicide Prevention Resources Skilled Items Patient informed of condition?: No DNR: No Discharge Level of Care: Other Communicable Disease: No Discharge Prognosis: Stable Lines: None Urinary Catheter: No Medications and DC Order Prescriptions: New albuterol sulfate [Ventolin HFA] 90 mcg/actuation Hfa Aerosol Inhaler 2 puff inhalation Q4H PRN (Reason: shortness of breath or wheezing) 30 Days Qty: 6.7 RF: 0 levetiracetam [Keppra] 500 mg Tablet 1,500 mg PO BID 30 Days Qty: 180 RF: 0 trazodone 100 mg Tablet 200 mg PO HS 30 Days Qty: 60 RF: 0 topiramate 100 mg Tablet 100 mg PO BID 30 Days Qty: 60 RF: 0 nicotine [Nicoderm CQ] 21 mg/24 hr Patch 24 Hour 21 mg transdermal QAM 30 Days Qty: 30 RF: 0 lamotrigine 25 mg tablet 25 mg PO QAM 30 Days Qty: 86 RF: 0 polyethylene glycol 3350 [Miralax] 17 gram Powder In Packet 17 g PO DAILY PRN (Reason: constipation) 30 Days Qty: 30 RF: 0 sertraline 100 mg Tablet 100 mg PO QAM 30 Days Qty: 30 RF: 0 magnesium hydroxide [Milk of Magnesia] 400 mg/5 mL Suspension 30 ml PO DAILY PRN (Reason: constipation) 30 Days Qty: 769 RF: 0 docusate sodium 100 mg Capsule 100 mg PO BID 30 Days Qty: 60 RF: 0 fluticasone propion-salmeterol [Advair Diskus] 100-50 mcg/dose Blister With Device 1 puff inhalation BID 30 Days Qty: 14 RF: 0 Discontinued levetiracetam [Keppra] 750 mg Tablet 1,500 mg PO BID Qty: 0 RF: 0 sertraline 50 mg Tablet 50 mg PO QAM Qty: 0 RF: 0 albuterol sulfate [Ventolin HFA] 90 mcg/actuation Hfa Aerosol Inhaler 2 puff Inhalation q4-6h PRN (Reason: Shortness Of Breath Or Wheezing) Qty: 0 RF: 0 meloxicam 15 mg Tablet 15 mg PO DAILY Qty: 0 RF: 0 topiramate [Topamax] 200 mg Tablet 200 mg PO BID Qty: 60 RF: 0 fluticasone propion-salmeterol 55-14 mcg/actuation Aerosol Powdr Breath Activated 1 puff INHALATION BID RF: 0 trazodone 150 mg Tablet 300 mg PO HS RF: 0 lamotrigine [Lamictal] 200 mg Tablet 200 mg PO BID RF: 0 Discharge Orders: Discharge Order (Routine); Ordered 07/15/19 Ordered By: Julee Renner Admission Data Admit Date/Time: 07/04/19 16:03 Attending Provider: Courtney Bryant Admit Provider: Nicolas Arguello Primary Care Provider: PCP,NO Other Interventions: Discharge Summary Assessment (RN) Last Done: 07/15/19 12:44 PSY Interdisciplinary Discharge Planning Last Done: 07/15/19 12:43 DC Date/Time DO NOT enter until pt leaves facility: 07/15/19 13:20 Coding Level of Care Code 97118 D/C day mgmt > 30 min Diagnoses Mood disorder F39 Alcohol dependence F10.20 Nicotine dependence F17.200 Seizure disorder G40.909 Asthma J45.909
[2019-07-15] MEDS: POLYETHYLENE (MIRALAX) 17 GM PACK PO PRN (10:31)
[2019-07-15] MEDS ORDERED: TRAZODONE HCL 100 MG TAB PO SCH (13:00)
[2019-07-15] MEDS ORDERED: SERTRALINE HCL 100 MG TABLET PO SCH (13:00)
[2019-07-15] MEDS ORDERED: TOPIRAMATE 100 MG TAB PO SCH (13:00)
[2019-07-15] MEDS ORDERED: DOCUSATE SODIUM 100 MG CAP PO SCH (13:00)
[2019-07-15] MEDS ORDERED: levETIRAcetam 500 MG TAB PO SCH (13:00)
[2019-07-15] MEDS ORDERED: lamoTRIgine 25 MG TAB PO SCH (13:15)
== END 2019-07-15 13:20 | disposition alcohol treatment (31) | DRG 885 ==
LOC: ED 09:06 → 3S 15:38 → SUATTDRO 16:03